=== PATIENT | female | born 1935 | race Caucasian/White ===

== ENCOUNTER → 2023-12-21 10:45 | Outpatient (REF) | payer MEDICARE, OTHER, SELFPAY | LOC: HWWDC 10:45 | PROVIDERS: ATTENDING PHYSICIAN Internal Medicine | DX: Z12.31 Encounter for screening mammogram for malignant neoplasm of breast (principal) | CPT/HCPCS: 77063; 77067 ==

== ENCOUNTER → 2024-03-20 10:51 | Outpatient (REF) | payer MEDICARE, OTHER, SELFPAY | LOC: HWRAD 10:51 | PROVIDERS: ATTENDING PHYSICIAN Internal Medicine Nephrology; FAMILY PHYSICIAN Internal Medicine; REFERRING PHYSICIAN Internal Medicine Cardiovascular Disease | DX: N18.32 Chronic kidney disease, stage 3b (principal) | CPT/HCPCS: 76770 ==

== ENCOUNTER → 2024-05-24 11:27 | Outpatient (REF) | payer MEDICARE, OTHER, SELFPAY ==
[2024-05-24 15:17] LABS: Albumin 4.3 g/dl (3.5-5.0); Blood Urea Nitrogen 32 mg/dl (7-17); Calcium 9.2 mg/dl (8.4-10.2); Carbon Dioxide 26 mmol/L (22-30); Chloride 100 mmol/L (98-107); Glucose 117 mg/dl (70-99); Phosphorus 4.2 mg/dl (2.5-4.5); Potassium 4.7 mmol/L (3.5-5.1); Sodium 134 mmol/L (135-145); eGFR 33.52
[2024-05-24 15:40] LABS: Protein/creatinine Ratio 0.1; Urine Protein 7 mg/dl
== END ==
LOC: HWLAB 11:27
PROVIDERS: ATTENDING PHYSICIAN Internal Medicine Nephrology; FAMILY PHYSICIAN Internal Medicine
DX: N18.32 Chronic kidney disease, stage 3b (principal); N32.81 Overactive bladder
CPT/HCPCS: 36415; 80069; 82570; 84156

== ENCOUNTER → 2024-09-30 09:40 | Outpatient (REF) | payer MEDICARE, OTHER, SELFPAY | LOC: HWLAB 09:40 | PROVIDERS: ATTENDING PHYSICIAN Radiology Radiation Oncology; FAMILY PHYSICIAN Internal Medicine | DX: C44.320 Squamous cell carcinoma of skin of unspecified parts of face (principal) | CPT/HCPCS: 36415; 82565 ==

== ENCOUNTER → 2024-10-02 09:00 | Outpatient (REF) | payer MEDICARE, OTHER, SELFPAY | LOC: RAD 09:00 | PROVIDERS: ATTENDING PHYSICIAN Radiology Radiation Oncology; FAMILY PHYSICIAN Internal Medicine | DX: C44.320 Squamous cell carcinoma of skin of unspecified parts of face (principal) | CPT/HCPCS: 70460; 70491; Q9967 ==

== ENCOUNTER → 2024-11-12 10:03 | Outpatient (REF) | payer MEDICARE, OTHER, SELFPAY | LOC: HWRCS 10:03 | PROVIDERS: ATTENDING PHYSICIAN Internal Medicine Cardiovascular Disease; FAMILY PHYSICIAN Internal Medicine | DX: I10 Essential (primary) hypertension (principal); I25.10 Atherosclerotic heart disease of native coronary artery without angina pectoris | CPT/HCPCS: 93306 ==

== ENCOUNTER → 2024-12-10 11:34 | Outpatient (REF) | payer MEDICARE, OTHER, SELFPAY ==
[2024-12-10 16:12] LABS: Albumin 4.3 g/dl (3.5-5.0); Blood Urea Nitrogen 23 mg/dl (7-17); Calcium 9.3 mg/dl (8.4-10.2); Carbon Dioxide 29 mmol/L (22-30); Chloride 102 mmol/L (98-107); Glucose 117 mg/dl (70-99); Potassium 4.5 mmol/L (3.5-5.1); Sodium 139 mmol/L (135-145); eGFR 33.31
[2024-12-10 16:22] LABS: Urine Character Slightly Cloudy (Clear)
[2024-12-10 16:33] LABS: Urine Red Blood Cell 0-2 /HPF (0-2); Urine Squamous Cell >30 /LPF (Few); Urine White Cell 50-60 /HPF (0-5)
== END ==
LOC: HWLAB 11:34
PROVIDERS: ATTENDING PHYSICIAN Internal Medicine Nephrology; FAMILY PHYSICIAN Internal Medicine
DX: N18.32 Chronic kidney disease, stage 3b (principal)
CPT/HCPCS: 36415; 80069; 81003; 81015; 82570; 84156

== ENCOUNTER 2024-12-28 12:45 | Inpatient (IN) | payer MEDICARE, OTHER, SELFPAY ==
[2024-12-28] VITALS (10 sets, daily range): BP systolic 111–178; BP diastolic 54–76; BMI 20.4; BMI 18.9
--- NOTE | 2024-12-28 10:29 | ED.CVA ---
History of Present Illness
General
Chief Complaint: CVA/TIA Symptoms
Source: patient and family
Exam Limitations: none
Time Seen by Provider: 12/28/24 10:08
Nursing documentation reviewed up to this point in time: agreed with
Onset of Stroke Symptoms
Onset of symptoms known: Yes
Date of onset of symptoms: 12/27/24
History of Present Illness
History of Present Illness:
89-year-old female with a past medical history of hypertension, hyperlipidemia, CAD, GERD who presents to the emergency department for evaluation of facial droop. Patient reports onset of symptoms after she was finished shopping yesterday evening
and they have been constant since that time. She reports that she has had drooping of the left side of her face. She says she had some associated numbness in the face. She has not noticed any change in her vision. She has some dysphonia that is
anxiety related and this is a chronic issue but no acute change in her speech. She denies any numbness or weakness in her extremities. She denies any dizziness. She denies significant headache or neck pain. She said she has never had similar
symptoms in the past. She says that she waited to come in hoping that symptoms would improve this morning but when they had not improved she discussed with her daughter who urged her to come to the ER.
Past History
Past History
ED Past Medical History: CAD, GERD, HTN, Hypercholesterolemia and SC
ED Past Surgical History: Cardiac (Catheterization/RCA stent) and Gynecological
Social History
Tobacco: Former smoker
Alcohol: None
Living: with family
Employment: Retired
Family History
Family History: Negative Diabetes, Hypertension or CAD
Review of Systems
Review of Systems
All Other Systems: ROS reviewed and negative except as documented in HPI and ROS
Constitutional: Denies fever
Respiratory: Denies trouble breathing
Cardiac: Denies chest pain or palpitations
ABD/GI: Denies abdominal pain, vomiting or diarrhea
: Denies flank pain
Musculoskeletal: Denies neck pain or back pain
Neurological: Denies dizzy, headache, weakness or numbness
Phy Exam
Physical Exam
Physical Exam:
General: Awake, alert, oriented x3; somewhat anxious but in no acute distress
Head: Normocephalic, atraumatic
Eyes: Conjunctiva normal, EOMI, pupils equal round and reactive to light bilaterally
Throat: Airway intact, handling secretions
Neck: Trachea midline, supple without meningismus
Lungs: Clear to auscultation bilaterally, no wheezing, rales, rhonchi
Heart: Regular rate and rhythm, faint systolic murmur
Abd: Soft, non distended, nontender
Neuro: Patient has a slight downturn of the left side of her mouth but facial droop on the left seems to spare the forehead; cranial nerves are otherwise intact; motor and sensory intact in all extremities; no limb ataxia; speech is fluent with no
dysarthria or aphasia
Skin: Warm and dry
Extremities: No edema in extremities, equal pulses in all extremities
Scores
NIH Stroke Score
Level of Consciousness: 0 - Alert
LOC Questions: 0-Answers both correctly
LOC Commands: 0-Performs both correctly
Best Horizontal Gaze: 0-Normal
Visual [place]: 0=Normal, no visual loss
Facial Palsy: 1=Minor paralysis
Motor - Right Arm: 0=No drift 10 seconds
Motor - Left Arm: 0=No drift 10 seconds
Motor - Right Le-No drift 5 seconds
Motor - Left Le-No drift 5 seconds
Limb Ataxia: 0-Absent
Sensation: 0-Normal
Best Language: 0-No aphasia
Dysarthria: 0-Normal
Extinction and Inattention: 0-No abnormality
NIH Total Score:: 1
Thrombolytic Contraindication
Inclusion and Exclusion criteria reviewed: Yes
Reasons for NON-Tx with Thrombolytics ABSOLUTE Exclusions: Greater than 4.5 hrs from onset of sxs
Course
Orders/Labs/Results
Orders:
Orders
12/28/24 10:28
Electrocardiogram (*1) Urgent
Reason for Study: TIA/Stroke
CT Head W/o Iv Contrast Urgent
Comment:
Reason For Exam: facial droop/numbness
NEUROLOGY CONSULT Urgent
Consulting Provider: Glendy Roger
Was physician already notified: Yes
EKG- Treatment ONCE
12/28/24 10:31
Complete Blood Count/With Diff Urgent
Lyme Progressive Urgent
12/28/24 11:11
Aspirin Chewable [Low Strength Aspirin] 81 mg PO NOW STA
12/28/24 11:14
Comprehensive Metabolic Panel Urgent
Abnormal Lab Results
12/28/24
10:31
RBC 3.76 L 10^6/uL
(4.20-5.40)
Hgb 11.3 L g/dL
(12.0-16.0)
Hct 35.2 L %
(37.0-47.0)
MCHC 32.1 L g/dL
(33.0-37.0)
Absolute Lymphs (auto) 0.8 L 10^3/uL
(1.2-3.4)
Neutrophils % 75.6 H %
(42.2-75.2)
Lymphocytes % 15.0 L %
(20.5-51.1)
12/28/24 10:31
Vital Signs
Initial and Last Documented VS:
Initial Vital Signs
Temp Pulse Resp BP Pulse Ox
36.6 C 71 20 178/76 95
12/28/24 09:44 12/28/24 09:44 12/28/24 09:44 12/28/24 09:44 12/28/24 09:44
Last Documented Vital Signs
Temp Pulse Resp BP Pulse Ox
36.6 C 71 17 157/76 99
12/28/24 09:44 12/28/24 10:15 12/28/24 10:15 12/28/24 10:00 12/28/24 10:34
MDM/Problems Addressed
Differential Diagnosis Includes:
Cooney's palsy, stroke, brain mass/bleed, complex migraine
MDM/Problems Addressed:
89-year-old female presents to the ER for evaluation of facial droop as described above�onset of symptoms yesterday evening. She is hypertensive but otherwise normal vitals. Physical exam is as above�only neurologic abnormality noted is a lower
facial droop on the left that seems to spare the forehead. No stroke alert called given onset of symptoms yesterday evening�she is outside the window for tenecteplase. Overall I suspect this may be Cooney's palsy given that facial droop is isolated
with otherwise normal neurologic exam but given that it spares the forehead must at least consider CVA especially at age 89 with vascular risk factors. Will check labs, Lyme's test, CT head. Discussed with neurology to consult.
Initial labs reviewed: CBC shows marginal anemia essentially stable. CT head reviewed by me no acute abnormalities�final report pending. Patient seen by neurology recommending admission for continued workup to completely rule out stroke.
Recommended baby aspirin for now. Discussed with hospitalist for admission.
Chronic conditions affecting care:
Hypertension, hyperlipidemia
Acute Exacerbation and/or Progression of Chronic Illness:
Acutely hypertensive improvement without intervention continue to monitor but no emergent antihypertensives indicated at this point
Acute Exacerbation and/or Progression of Chronic Illness: HTN
*Pulse Oximetry
SaO2: 99
Oxygen Mode of Delivery: Room air
Patient hypoxic: no (99%)
*EKG
Interpreted by ED Provider?: Yes
Heart Rate: 67
Rate: normal
Rhythm: sinus
[place]: normal axis
Interval: first degree heart block
QRS Pattern: normal QRS
Ischemia: no ischemia
*Critical Care Note
Total Time (30-74mins, 75-104mins- exclusive of procedures): Not Applicable
Data Reviewed
Source: patient, records and family
Patient Management
Discussion with other providers: Hospitalist (Discussed with hospitalist) and Gifted Program Teacher (Discussed with neurology)
Escalation/DeEscalation of care consider admission/obs:
Admission indicated
ED Attending Note
-
Portions of this chart may have been created with voice recognition software.� Occasional wrong word or��sound alike� substitutions may have occurred due to the inherent limitations of voice recognition software.
Discharge Plan
Departure
Patient Disposition: Admit
Date of Disposition: 12/28/24
Time of Disposition: 11:40
Admit to doctor: Bolanos
Presentation/result/management discussed w/ accepting MD/DO: Hospitalist
Discharge Problem:
Facial droop
Prescriptions:
No Action
atorvastatin [Lipitor] 20 MG tablet
20 mg PO HS
aspirin [Baby Aspirin] 81 MG tablet,chewable
81 mg PO DAILY
sertraline 25 MG tablet
50 mg PO DAILY
diltiazem HCl 120 MG capsule,extended release 24hr
120 mg PO BID
acetaminophen [Tylenol] 325 MG capsule
650 mg PO PRN PRN (Reason: pain)
clopidogrel 75 MG tablet
75 mg PO DAILY Qty: 90 10RF
pantoprazole 40 MG tablet,delayed release (DR/EC)
40 mg PO DAILY Qty: 90 10RF
nitroglycerin 0.4 MG tablet, sublingual
0.4 mg sublingual PRN PRN (Reason: chest pain) Qty: 25 10RF
lisinopril 20 MG tablet
20 mg PO DAILY Qty: 90 10RF
Referrals:
Marco Martinez MD [Family Provider, Internal Medicine]
Interventions
Interventions:
*Risk Screen - Suicide Last Done: 12/28/24 09:44
*General Assessment Last Done: 12/28/24 09:44
*Neglect/Abuse Screening Last Done: 12/28/24 09:44
*ED- Fall Risk Assessment Last Done: 12/28/24 10:22
*ED COVID-19 Vaccine History Last Done: 12/28/24 10:21
*ED Influenza Vaccine History Last Done: 12/28/24 10:21
ED- Pulmonary Assessment Last Done: 12/28/24 09:57
ED- Neurological Assessment Last Done: 12/28/24 09:57
ED- Cardiac Assessment Last Done: 12/28/24 09:57
ED Swallowing Screen Last Done: 12/28/24 09:57
Discharge Date and Time
Print Language: ROMANIAN
[2024-12-28 10:50] LABS: Hematocrit 35.2 % (37.0-47.0); Hemoglobin 11.3 g/dL (12.0-16.0); Mean Corp Hgb Conc. 32.1 g/dL (33.0-37.0); Mean Corpuscular Volume 93.6 fL (81.0-99.0); Nucleated Red Blood Cells % 0 %; Platelet Count 273 10^3/uL (130-400); Red Cell Dist. Width 12.6 % (11.5-14.5)
--- NOTE | 2024-12-28 11:22 | CON.NEURO ---
Consultation
Order
Date of Consultation: 12/28/24
Requesting Provider: Calvin Hilario MD
Reason for Consult: Facial weakness
Neurology Consultation Note.
HPI: This is an 89-year-old RH woman who presented to [facility] on 12/23/2024 with facial weakness that began yesterday while shopping. Ms. Matias noticed something felt different on her left cheek while in the store, and when she
went to her car and smiled in the mirror, she observed left facial weakness.
The patient denies any changes in vision,left ear pain, hyperacusis, dysphagia, headache or sensory deficit. 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 The patient has had dysgeusia after completing 20 rounds of RT
for the right scalp SCC but she is starting to get some taste back.
ER VS: 178/76, 71, afebrile
EKG: Normal sinus rhythm with first AV block.
Labs: Normal WBCs
CT head wo contrast-report is pending
PMH:spasmodic dysphonia, scalp SCC, CAD, HTN, DLP, CKD, RENÉE, GERD, ORB,
PSH:PTCI, bilateral cataract surgery
SH: Lives alone, independent in ADLs; Previously worked at [employer], former smoker
FH: Father at 92, mother - CAD
All:NKDA
ROS: HEENT: Negative for vision changes, double vision, left ear pain, or tinnitus. Positive for taste changes.
Gastrointestinal: Negative for dysphagia.
Neurological: Positive for left-sided weakness, negative for numbness or balance problems.
General: Well developed. In no acute distress.
Cardio: Regular rate and rhythm without murmur. Extremities are without cyanosis or edema.
Neuro:
Mental Status: Alert, oriented to person, place, and date. Normal attention and recall. Good fund of knowledge. Follows complex requests across the midline. Comprehension, naming, and repetition intact.
Cranial Nerves: Pupils are surgical. EOMs full. Visual burgess full to confrontation. No ptosis. No nystagmus. V1-V3 intact to light touch and pinprick bilaterally, symmetric. Left lower face weakness. Eye strength is preserved. Mildly
impaired hearing AU. The palate elevated well. SCMs and traps 5/5. Tongue midline. No dysarthria. Spasmodic dysphonia
Motor: Normal bulk and tone. No pronator or arm drift. Strength 5/5 throughout. No clonus.
Reflexes: 1+ throughout, negative grasp and Edy's bilaterally.
Sensory: Preserved vibration at the ankles
Coordination: No dysmetria or tremor.
Gait: deferred
Assessment and Plan:
I. Acute left facial weakness. Differential diagnosis includes vascular vs neoplastic.
II. SCC, s/p RT
III. Spasmodic dysphonia
-Continue Telemetry monitoring
-Aspiration precautions
-Cautious lowering of BP by approximately 15 % during the first 24 hours is SBP >220 mmHg or diastolic blood pressure >120 mmHg
-Restart antihypertensive medications if BP>140/90 mmHg and neurologically stable in 24 to 48 hours after stroke onset
-Brain MRI w/wo renée
-Continue ASA 81 mg QD
-Lipitor 40 mg QHS.
-Dysphagia evaluation
-OP voice therapy, botulinum toxin injections
-PT.
-DVT prophylaxis.
I personally reviewed all radiology and labs along with past medical records pertinent to current medical problems. Total time spent in patient care is 60 minutes.
Thank you for allowing us to participate in the care of this patient. We will continue to follow. Please do not hesitate to contact us with any questions or concerns.
Subjective/Objective
Subjective Data
Date of Service: December 28, 2024
Objective Data
Vital Signs
Temp Pulse Resp BP Pulse Ox
36.6 C 71 17 157/76 99
12/28/24 09:44 12/28/24 10:15 12/28/24 10:15 12/28/24 10:00 12/28/24 10:34
Lab Results
12/28/24 10:31
Patient Allergies
SEASONAL ALLERGIES Allergy (Mild, Uncoded 12/28/24 09:47)
SINUS HEADACHES, SNEEZING, CONGESTION
Medications
-
Home Medications
�Medication �Instructions �Recorded
atorvastatin 20 mg tablet (Lipitor) 20 mg PO HS 09/04/08
aspirin 81 mg chewable tablet 81 mg PO DAILY 09/23/08
(Baby Aspirin)
sertraline 25 mg tablet 50 mg PO DAILY 10/10/08
acetaminophen 325 mg capsule 650 mg PO PRN PRN pain 10/03/18
(Tylenol)
clopidogrel 75 mg tablet 75 mg PO DAILY #90 tabs 10/03/18
diltiazem HCl 120 mg 120 mg PO BID 10/03/18
capsule,extended release 24 hr
nitroglycerin 0.4 mg sublingual 0.4 mg sublingual PRN PRN chest 10/03/18
tablet pain #25 tabs
pantoprazole 40 mg tablet,delayed 40 mg PO DAILY #90 tabs 10/03/18
release
lisinopril 20 mg tablet 20 mg PO DAILY ##90 10/09/18
Vital Signs and Labs
-
Vital Signs and Labs:
Vital Signs
Temp Pulse Resp BP Pulse Ox
36.6 C 71 17 157/76 99
12/28/24 09:44 12/28/24 10:15 12/28/24 10:15 12/28/24 10:00 12/28/24 10:34
Lab Results
12/28/24 10:31
Home Medications
-
Home Medications
atorvastatin 20 mg tablet (Lipitor) 20 mg PO HS 09/04/08
aspirin 81 mg chewable tablet (Baby Aspirin) 81 mg PO DAILY 09/23/08
sertraline 25 mg tablet 50 mg PO DAILY 10/10/08
acetaminophen 325 mg capsule (Tylenol) 650 mg PO PRN PRN pain 10/03/18
clopidogrel 75 mg tablet 75 mg PO DAILY #90 tabs 10/03/18
diltiazem HCl 120 mg capsule,extended release 24 hr 120 mg PO BID 10/03/18
nitroglycerin 0.4 mg sublingual tablet 0.4 mg sublingual PRN PRN chest pain #25 tabs 10/03/18
pantoprazole 40 mg tablet,delayed release 40 mg PO DAILY #90 tabs 10/03/18
lisinopril 20 mg tablet 20 mg PO DAILY ##90 10/09/18
[2024-12-28] MEDS: LOW STRENGTH ASPIRIN 81 MG PO (11:39)
[2024-12-28 11:42] LABS: ALT (SGPT) 11 U/L (0-35); AST (SGOT) 27 U/L (14-36); Albumin 4.3 g/dl (3.5-5.0); Alkaline Phosphatase 86 U/L (38-126); Blood Urea Nitrogen 21 mg/dl (7-17); Calcium 9.2 mg/dl (8.4-10.2); Carbon Dioxide 27 mmol/L (22-30); Chloride 104 mmol/L (98-107); Estimated Creatinine Clearance 24 ml/min; Glucose 99 mg/dl (70-99); Potassium 5.2 mmol/L (3.5-5.1); Sodium 138 mmol/L (135-145); Total Protein 7.2 g/dl (6.3-8.2); eGFR 39.55
--- NOTE | 2024-12-28 12:04 | HPS.HSE ---
Family Physician
-
Family Physician: Marco Martinez
Chief Complaint
-
Lt facial droop
History of Present Illness
89F Former smoker HX HTN, HLD, CAD, GERD seen at ER :
- for evaluation of facial droop
- onset of symptoms after shopping yesterday evening and they have been constant since that time.
- has had drooping of the left side of her face.
- associated numbness in the face.
- not noticed any change in her vision.
- some dysphonia that is anxiety related and this is a chronic issue but no acute change in her speech.
- denies any numbness or weakness in her extremities.
- denies any dizziness.
- denies significant headache or neck pain.
- Never had similar symptoms in the past.
Medical History
Past Medical History
Past Medical History: Reports CAD (with RCA stent ), GERD, HTN and Hypercholesterolemia
Past Surgical History: Reports Cardiac (Catheterization/RCA stent) and Gynocological
Social History
Tobacco: Former Smoker
Alcohol: None
Family History
Family History: Not pertinent
Allergies / Home Medications
Allergies reflects when Allergies were last updated in [facility].
Home Medications with original date entered in [facility]
Allergy/Medication List:
Allergies
Allergy/AdvReac Type Severity Reaction Status Date / Time
SEASONAL ALLERGIES Allergy Mild SINUS Uncoded 12/28/24 09:47
HEADACHES,
SNEEZING,
CONGESTION
Home Medications
aspirin 81 mg tablet,delayed release 81 mg PO DAILY 12/28/24
atorvastatin 40 mg tablet (Lipitor) 40 mg PO HS 12/28/24
diltiazem HCl 120 mg tablet,extended release 24 hr 120 mg PO BID 12/28/24
diphenhydramine 25 mg-acetaminophen 500 mg tablet (Acetaminophen PM) 1 tab PO HS 12/28/24
lisinopril 20 mg-hydrochlorothiazide 12.5 mg tablet 1 tab PO DAILY 12/28/24
sertraline 50 mg tablet 50 mg PO DAILY 12/28/24
Review of Systems
-
Constitutional: Reports No Symptoms
EENT: Reports See HPI
Respiratory: Reports No Symptoms
Cardiac: Reports No Symptoms
Abdomen/GI: Reports No Symptoms
: Reports No Symptoms
Musculoskeletal: Reports No Symptoms
Skin: Reports No Symptoms
Neurological: Reports See HPI
Endocrine: Reports No Symptoms
Hematologic/Lymphatic: Reports No Symptoms
Psych: Reports No Symptoms
Physical Exam
Vital Signs
Vital Signs
Temp Pulse Resp BP Pulse Ox
97.9 F 71 17 141/63 94
12/28/24 09:44 12/28/24 11:46 12/28/24 11:45 12/28/24 11:00 12/28/24 11:45
Physical Exam
General: Well Developed, Well Nourished and No Apparent Distress
HEENT: NormoCephalic, Moist mucous membranes and Atraumatic
Respiratory: Clear
Cardiac: S1/S2 and Regular Rhythm; No Murmur or Rub
GI: Soft, Non Tender, Non Distended and Normal Bowel Sounds; No Organomegaly
Rectal: Deferred by Provider
Musculoskeletal: No Clubbing, No Cyanosis and No Edema
Skin: No Rash
Neuro: Nonfocal/grossly intact and Facial Droop (Lt sided )
Laboratory Results
-
12/28/24 10:31
12/28/24 11:14
Laboratory Results
Total Bilirubin 0.5 mg/dl (0.2-1.3) 12/28/24 11:14
AST 27 U/L (14-36) 12/28/24 11:14
ALT 11 U/L (0-35) 12/28/24 11:14
Alkaline Phosphatase 86 U/L (38-126) 12/28/24 11:14
Data Reviewed
-
CT Scan: Report Reviewed by me
Medical Tests (Nuc Med, Echo, EKG etc): Report Reviewed by me
Lab Data: Labs Reviewed by me
Impression/Plan
-
Relevant Data
12/11/23 12/10/24 12/28/24
10:07 11:45 10:31 and 11:14
Hgb 12.0 11.3 L
MCV 93.6
Potassium 4.5 5.2
BUN 23 H 21
Creatinine 1.5 H 1.3
eGFR 33.31 39.55
EKG
SINUS RHYTHM WITH 1ST DEGREE A-V BLOCK
OTHERWISE NORMAL ECG
WHEN COMPARED WITH ECG OF 09-Oct-2018 04:45,
NO SIGNIFICANT CHANGE WAS FOUND
CT Head W/o Iv Contrast -No acute intracranial abnormality noted.
No prior hospitalist admission:
ASSESSMENT & PLAN
Acute left facial weakness. DDX: CVA vs neoplastic.
HX Spasmodic dysphonia
- denies any changes in vision,left ear pain, dysphagia, headache or sensory deficit.
- Neuro consult appreciated : noted following suggestion
- Permissive HTN : SBP less than 220 mmHg or DBP less than 120 120 mmHg
- To resume BP meds BP>140/90 mmHg and neurologically stable in 24 to 48 hours after stroke onset
- Brain MRI w/wo snow
- c/w ASA 81 mg QD
- Lipitor 40 mg QHS.
- Dysphagia evaluation
- OP voice therapy, botulinum toxin injections
HX chronic spasmodic dysphonia
Associated dwith anxiety
Benign HTN
- Permissive HTN : SBP less than 220 mmHg or DBP less than 120 120 mmHg for lesstahn 48hrs after onset of stroke
- Hold DOOR SERVICEMAN Diltiazem 120 BID
- Hold Lisinopril/HCTZ daily
- To resume BP Meds BP>140/90 mmHg and neurologically stable in 24 to 48 hours after stroke onset
DLP
- DO[employer]ICEM[employer] Lipitor 40 HS
HX R scalp SCC : starting to get some taste back.
S/P 20 rounds XRT f
CKD 3b
- stable
- baseline Cr is mid to hi 1s. eGFR 30s
DVT Px: SCD
Full code
IP TLM
[2024-12-28 14:56] LABS: Glycohemoglobin (HgbA1c) 6.1 % (4.0-5.9)
--- NOTE | 2024-12-28 17:03 | PTCARENOTE ---
admitted to room 436-2 from ED. VSS. NSR on telemetry, HR 60s. NIHSS 1 for left facial droop, see flowsheet. Discussed plan of care w/ patient and daughter, Kiley.
[2024-12-28] MEDS: TYLENOL 650 MG PO (19:29)
[2024-12-28] MEDS: LIPITOR 40 MG PO (21:25)
[2024-12-29] VITALS (8 sets, daily range): BP systolic 125–154; BP diastolic 61–87; PULSE 75–77; O2SAT 97–98; BMI 18.9
[2024-12-29] MEDS: ZOFRAN 4 MG IV ×3 (05:22→22:23)
--- NOTE | 2024-12-29 05:29 | PTCARENOTE ---
Pt rang because she felt nauseous/ started dry heaving . Pt believes it's from 'not taking her cardizem' EMILIA Gaitan notified and ordered zofran.
[2024-12-29 07:17] LABS: Hematocrit 32.2 % (37.0-47.0); Hemoglobin 10.6 g/dL (12.0-16.0); Mean Corp Hgb Conc. 32.9 g/dL (33.0-37.0); Mean Corpuscular Volume 91.5 fL (81.0-99.0); Platelet Count 248 10^3/uL (130-400); Red Cell Dist. Width 12.6 % (11.5-14.5)
[2024-12-29 07:32] LABS: Blood Urea Nitrogen 19 mg/dl (7-17); Calcium 9.2 mg/dl (8.4-10.2); Carbon Dioxide 27 mmol/L (22-30); Chloride 101 mmol/L (98-107); Estimated Creatinine Clearance 26 ml/min; Glucose 102 mg/dl (70-99); HDL Cholesterol 65 mg/dl; LDL Cholesterol, Calculated 43 mg/dl; Potassium 5.5 mmol/L (3.5-5.1); Sodium 135 mmol/L (135-145); Very Low Density Lipoprotein 19 mg/dl (0-30); eGFR 48.33
[2024-12-29 07:54] LABS: VerifyNow Aspirin 406 ARU
--- NOTE | 2024-12-29 08:15 | W.PN.NEURO.1 ---
Today's Communication / Plan
-
.
Subjective/Objective
Subjective Data
Date of Service: December 29, 2024
Neurology follow-up note.
Ms. Matias reports no complaints. No change in speech, vision or strength since admission.
Brain MRI�no acute infarcts.
PMH:spasmodic dysphonia, scalp SCC, CAD, HTN, DLP, CKD, RENÉE, GERD, ORB,
PSH:PTCI, bilateral cataract surgery
SH: Lives alone, independent in ADLs; Previously worked at [employer], former smoker
FH: Father at 92, mother - CAD
All:NKDA
ROS: HEENT: Negative for vision changes, double vision, left ear pain, or tinnitus. Positive for taste changes.
Gastrointestinal: Negative for dysphagia.
Neurological: Positive for left-sided weakness, negative for numbness or balance problems.
General: Well developed. In no acute distress.
Cardio: Regular rate and rhythm without murmur. Extremities are without cyanosis or edema.
Neuro:
Mental Status: Alert, oriented to person, place, and date. Normal attention and recall. Good fund of knowledge. Follows complex requests across the midline. Comprehension, naming, and repetition intact.
Cranial Nerves: Pupils are surgical. EOMs full. Visual burgess full to confrontation. No ptosis. No nystagmus. V1-V3 intact to light touch and pinprick bilaterally, symmetric. Left lower face weakness. Eye strength is preserved. Mildly
impaired hearing AU. The palate elevated well. SCMs and traps 5/5. Tongue midline. No dysarthria. Spasmodic dysphonia
Motor: Normal bulk and tone. No pronator or arm drift. Strength 5/5 throughout. No clonus.
Reflexes: 1+ throughout, negative grasp and Edy's bilaterally.
Sensory: Preserved vibration at the ankles
Coordination: No dysmetria or tremor.
Gait: deferred
Assessment and Plan:
I. Likely very mild left lower motor CN VII weakness. Clinically improved.
II. SCC, s/p RT
III. Spasmodic dysphonia
- Continue Telemetry monitoring
- Lipitor 40 mg QHS.
- OP voice therapy, botulinum toxin injections
- Case was discussed with patient's son
- Please call neurology service with any questions or concerns
I personally reviewed all radiology and labs along with past medical records pertinent to current medical problems. Total time spent in patient care is 36 minutes.
Thank you for allowing us to participate in the care of this patient. Please do not hesitate to contact us with any questions or concern
Objective Data
Vital Signs
Temp Pulse Resp BP Pulse Ox
36.6 C 68 16 143/68 96
12/29/24 07:08 12/29/24 07:08 12/29/24 07:08 12/29/24 07:08 12/29/24 07:08
Lab Results
12/29/24 06:37
12/29/24 06:37
Sodium 135 mmol/L (135-145) 12/29/24 06:37
Potassium 5.5 mmol/L (3.5-5.1) H 12/29/24 06:37
BUN 19 mg/dl (7-17) H 12/29/24 06:37
Glucose 102 mg/dl (70-99) H 12/29/24 06:37
Calcium 9.2 mg/dl (8.4-10.2) 12/29/24 06:37
LDL Cholesterol, Calc 43 mg/dl 12/29/24 06:37
Patient Allergies
SEASONAL ALLERGIES Allergy (Mild, Uncoded 12/28/24 09:47)
SINUS HEADACHES, SNEEZING, CONGESTION
Vital Signs and Labs
-
Vital Signs and Labs:
Vital Signs
Temp Pulse Resp BP Pulse Ox
36.6 C 78 18 133/78 94
12/29/24 11:43 12/29/24 11:43 12/29/24 11:43 12/29/24 11:43 12/29/24 11:43
Lab Results
12/29/24 06:37
12/29/24 06:37
Sodium 135 mmol/L (135-145) 12/29/24 06:37
Potassium 5.5 mmol/L (3.5-5.1) H 12/29/24 06:37
BUN 19 mg/dl (7-17) H 12/29/24 06:37
Glucose 102 mg/dl (70-99) H 12/29/24 06:37
Calcium 9.2 mg/dl (8.4-10.2) 12/29/24 06:37
LDL Cholesterol, Calc 43 mg/dl 12/29/24 06:37
Medications
-
Medications:
Generic Name Dose Route Start Last Admin
Trade Name Freq PRN Reason Stop Dose Admin
Acetaminophen 650 mg 12/28/24 18:34 12/28/24 19:29
Acetaminophen 325 Mg Tablet PO 01/25/25 18:33 650 mg
Q6HPRN PRN Administration
mild pain/ fever>100.5F
Aspirin 81 mg 12/29/24 08:00 12/29/24 09:37
Aspirin 81 Mg (Enteric Coated) Tablet PO 01/26/25 07:59 81 mg
DAILY SUZANNE Administration
Atorvastatin Calcium 40 mg 12/28/24 22:00 12/28/24 21:25
Atorvastatin (Lipitor) 40 Mg Tablet PO 01/25/25 21:59 40 mg
HS SUZANNE Administration
Diltiazem HCl 120 mg 12/29/24 20:00
Diltiazem 120 Mg Extended Release (24 H) Capsule PO 01/26/25 19:59
BID SUZANNE
Hydralazine HCl 5 mg 12/28/24 13:39
Hydralazine 20 Mg/Ml Vial IV 01/25/25 13:38
Q6HPRN PRN
if SBP > 220 or DBP > 120
Ondansetron HCl 4 mg 12/29/24 05:15 12/29/24 11:15
Ondansetron 4 Mg/2 Ml Vial IV 01/26/25 05:14 4 mg
Q6HPRN PRN Administration
NAUSEA/VOMITING
Sertraline HCl 50 mg 12/29/24 08:00 12/29/24 09:37
Sertraline 50 Mg Tablet PO 01/26/25 07:59 50 mg
DAILY SUZANNE Administration
Sodium Chloride 0 flush 12/28/24 14:00
Sodium Chloride 0.9% (Flush) Syringe IV 01/25/25 13:59
PER PROTOCOL SUZANNE
Home Medications
-
Home Medications
aspirin 81 mg tablet,delayed release 81 mg PO DAILY 12/28/24
atorvastatin 40 mg tablet (Lipitor) 40 mg PO HS 12/28/24
diltiazem HCl 120 mg tablet,extended release 24 hr 120 mg PO BID 12/28/24
diphenhydramine 25 mg-acetaminophen 500 mg tablet (Acetaminophen PM) 1 tab PO HS 12/28/24
lisinopril 20 mg-hydrochlorothiazide 12.5 mg tablet 1 tab PO DAILY 12/28/24
sertraline 50 mg tablet 50 mg PO DAILY 12/28/24
[2024-12-29] MEDS: ASPIR LOW (ENTERIC COATED) 81 MG PO (09:37)
[2024-12-29] MEDS: ZOLOFT 50 MG PO (09:37)
--- NOTE | 2024-12-29 10:35 | PTCARENOTE ---
patient currently off unit for MRI
--- NOTE | 2024-12-29 10:55 | PTOTSP ---
Speech Therapy Evaluation:
Pt with acute risk factor of dysphagia including concern for CVA. MRI currently pending. At bedside, pt with L facial droop (improving), however this did not appear to impact overall swallow function. Oral phase grossly functional. No overt s/sx of
aspiration across trials. No chest imaging completed thus far. Pt passed 3oz swallow screen.
Recommend:
1. Regular solids and thin liquids
2. Medications as tolerated
3. General aspiration precautions
4. MOBILE MECHANIC to follow to monitor tolerance of diet and determine if pt would benefit from further testing pending MRI.
[2024-12-29] MEDS: LOKELMA 10 GRAM PO (11:12)
--- NOTE | 2024-12-29 12:05 | W.PN.HOSP.TC ---
Today's Communication/Plan
-
Monitor vital signs and see plan
MRI pending
Check obstruction series
Lokelma
Repeat BMP later today
Monitor renal function
Discussed with neurology, restart Cardizem
Assessment / Plan
Assessment / Plan
General: Well Developed, Well Nourished and No Apparent Distress
HEENT: Normocephalic, Moist mucous membranes and Atraumatic
Respiratory: Clear
Cardiac: S1/S2 and Regular Rhythm; No Murmur or Rub
GI: Soft, Non Tender, Non Distended and Normal Bowel Sounds
Musculoskeletal: No Edema
Neuro: Nonfocal/grossly intact and Facial Droop (Lt sided )
Acute left facial weakness along with facial droop
HX Spasmodic dysphonia
- denies any changes in vision,left ear pain, dysphagia, headache or sensory deficit.
Neurology following
MRI pending
Discussed with neurology, okay to start Cardizem
- c/w ASA 81 mg QD
- Lipitor 40 mg QHS.
- OP voice therapy, botulinum toxin injections
Nausea/vomiting
Denies abdominal pain
Check abdomen x-ray
Hyperkalemia
Lokelma
HX chronic spasmodic dysphonia
Associated with anxiety
Benign HTN
- restart Diltiazem 120 BID
- Hold Lisinopril/HCTZ daily
- To resume BP Meds BP>140/90 mmHg
DLP
- PASTA MAKER Lipitor 40 HS
HX R scalp SCC
S/P 20 rounds XRT
hx of CKD 3b
- stable
- baseline Cr is mid to hi 1s.
DVT Px: SCD, heparin
Full code
Anticipated Discharge: Within 24 hours
Subjective/Interval History
-
Date of Service: December 29, 2024
Denies nausea
Objective Data
-
Labs:
Laboratory Results
12/29/24
06:37
WBC 3.8 L
Hgb 10.6 L
Hct 32.2 L
Plt Count 248
Sodium 135
Potassium 5.5 H
Chloride 101
Carbon Dioxide 27
BUN 19 H
Creatinine 1.1 H
Glucose 102 H
Calcium 9.2
Vital Signs:
Vital Signs
Temp Pulse Resp BP Pulse Ox
97.8 F 78 18 133/78 94
12/29/24 11:43 12/29/24 11:43 12/29/24 11:43 12/29/24 11:43 12/29/24 11:43
I&O
12/28/24 12/29/24 12/30/24
06:59 06:59 06:59
Intake Total 360 / 360
Balance 360 / 360
--- NOTE | 2024-12-29 12:15 | PTCARENOTE ---
Immediately vomitted after drinking Lokelma. Dr. Martinez aware. Order to recheck BMP at 20:00 noted.
--- NOTE | 2024-12-29 12:30 | CM ---
Met with patient and family at bedside
Primary Contact: DaughterKiley
Pharmacy verified: [facility] @ [address] [facility]
Lives alone; split level home; railings on stairs
Independent w/ ambulation, stairs, and ADLs; Drives; No DME
No SNF or Home Health utilization history
DaughterKiley will provide transport home
Plan: Discharge to home when medically stable; no needs
[2024-12-29] MEDS: LIPITOR 40 MG PO (19:55)
[2024-12-29] MEDS: CARDIZEM CD 120 MG PO (19:55)
[2024-12-29] MEDS: HEPARIN 5000 UNITS SC (19:57)
[2024-12-29 22:22] LABS: Blood Urea Nitrogen 21 mg/dl (7-17); Calcium 9.1 mg/dl (8.4-10.2); Carbon Dioxide 26 mmol/L (22-30); Chloride 99 mmol/L (98-107); Estimated Creatinine Clearance 26 ml/min; Glucose 101 mg/dl (70-99); Potassium 4.6 mmol/L (3.5-5.1); Sodium 134 mmol/L (135-145); eGFR 48.33
[2024-12-30 03:24] VITALS: BP 149/76
[2024-12-30 07:00] VITALS: BP 152/74
[2024-12-30 08:02] LABS: Hematocrit 36.6 % (37.0-47.0); Hemoglobin 11.8 g/dL (12.0-16.0); Mean Corp Hgb Conc. 32.2 g/dL (33.0-37.0); Mean Corpuscular Volume 94.8 fL (81.0-99.0); Platelet Count 237 10^3/uL (130-400); Red Cell Dist. Width 12.4 % (11.5-14.5)
[2024-12-30 08:36] LABS: Blood Urea Nitrogen 21 mg/dl (7-17); Calcium 9.4 mg/dl (8.4-10.2); Carbon Dioxide 29 mmol/L (22-30); Chloride 100 mmol/L (98-107); Estimated Creatinine Clearance 24 ml/min; Glucose 94 mg/dl (70-99); Potassium 4.8 mmol/L (3.5-5.1); Sodium 134 mmol/L (135-145); eGFR 43.54
[2024-12-30] MEDS: CARDIZEM CD 120 MG PO ×2 (09:41→20:41)
[2024-12-30] MEDS: ASPIR LOW (ENTERIC COATED) 81 MG PO (09:41)
[2024-12-30] MEDS: HEPARIN 5000 UNITS SC ×2 (09:41→20:42)
[2024-12-30] MEDS: ZOLOFT 50 MG PO (09:41)
[2024-12-30 11:01] VITALS: BP 133/72
[2024-12-30 11:36] LABS: Lyme Antibody Screen, EIA Negative (Negative)
--- NOTE | 2024-12-30 12:30 | W.PN.HOSP.TC ---
Today's Communication/Plan
-
DC
Assessment / Plan
Assessment / Plan
Acute left facial weakness along with facial droop and also left cheek numbness
HX Spasmodic dysphonia
But symptoms have resolved. No further facial droop.
MRI with stroke.
Unclear if this is a TIA.
- c/w ASA 81 mg QD
- Lipitor 40 mg QHS.
-In sinus rhythm. LDL 43. Blood pressure under goal.HbA1c 6.1
-Neurology input noted. They recommend outpatient OP voice therapy, botulinum toxin injections for dysphonia.
- Will check an ultrasound of the carotids prior to discharge to make sure there is no significant stenosis.
Nausea/vomiting
Denies abdominal pain
X-ray of the abdomen no intestinal obstruction or free air. Self-limiting symptom. Currently asymptomatic. Abdomen benign.
Hyperkalemia
Lokelma
With chronic kidney disease will discontinue the lisinopril and continue with hydrochlorothiazide along with Cardizem but hypertension
HX chronic spasmodic dysphonia
Associated with anxiety
Benign HTN
- BP under goal.
DLP
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
HX R scalp SCC
S/P 20 rounds XRT
hx of CKD 3b
- stable
- baseline Cr is mid to hi 1s.
DVT Px: SCD, heparin
Full code
DW Daughter
DC home after US carotids
Anticipated Discharge: Today
Subjective/Interval History
-
Date of Service: December 30, 2024
All her symptoms have resolved.
Denies any tingling numbness in the left cheek like she had before coming in. Also states the left facial droop has resolved. No headache. No limb weakness.
Denies any nausea vomiting or abdominal pain. No loss of breath or chest pain.
Objective Data
-
Labs:
Laboratory Results
12/30/24
07:49
WBC 4.2 L
Hgb 11.8 L
Hct 36.6 L
Plt Count 237
Sodium 134 L
Potassium 4.8
Chloride 100
Carbon Dioxide 29
BUN 21 H
Creatinine 1.2 H
Glucose 94
Calcium 9.4
Vital Signs:
Vital Signs
Temp Pulse Resp BP Pulse Ox
98.2 F 82 16 133/72 96
12/30/24 11:01 12/30/24 11:01 12/30/24 11:01 12/30/24 11:01 12/30/24 11:01
I&O
12/29/24 12/30/24 12/31/24
06:59 06:59 06:59
Intake Total 360 / 360
Balance 360 / 360
Physical Exam
-
General: Comfortable
Respiratory: Clear to Auscultation and Non Labored Respirations; Negative Accessory Resp Muscle Use
Cardiac: Regular Rhythm and S1/S2; Negative Tachycardic
GI: Nontender
Neuro: AO x 3 and No Motor Deficits; Negative Tremors, Slurred Speech (dysphonia noted) or Facial Droop
Psych: Calm; Negative Confused or Agitated
Data Reviewed
-
MRI: Report Reviewed by me (MRI of the brain)
Labs: Labs Reviewed by me
[2024-12-30 15:39] VITALS: BP 123/62
--- NOTE | 2024-12-30 16:42 | CM ---
Chart reviewed and patient is currently ambulating 200 feet without assisted device, plan is to home when stable.
Plan; Home alone at discharge.
[2024-12-30] MEDS: PLAVIX 75 MG PO (18:14)
[2024-12-30 19:00] VITALS: BP 118/60
[2024-12-30] MEDS: LIPITOR 40 MG PO (20:41)
[2024-12-30 23:03] VITALS: BP 146/63
[2024-12-31 03:11] VITALS: BP 137/58
[2024-12-31 07:09] VITALS: BP 143/62
[2024-12-31 08:09] VITALS: BP 143/62
--- NOTE | 2024-12-31 08:21 | CON.VAS ---
Consultation
Consultation Request
Date/Time Consultation Performed: 12/23/2024 at 8 AM
Requesting Provider: Hospitalist
Performing Provider: Kimi Gifford, REMBERTO-C for Lee Miller M.D.
Reason for Consultation: Left carotid stenosis
Medical History
-
Chief Complaint: Left facial droop
History of Present Illness:
This is an 89-year-old right handed female with significant past medical history for hypertension, hyperlipidemia, coronary artery disease, chronic kidney disease, GERD, and squamous cell cancer who presented to [facility] ED on 12/28/2024 with
reports of acute onset of painless left-sided facial droop that began on 12/27/2024 while she was shopping. When patient awoke on Monday she noted that facial droop had improved but not completely resolved prompting her to call her daughter who
brought her to ED for urgent evaluation. Upon evaluation in the ED on 12/28/2024 she was noted to have near resolution of left-sided facial droop, and currently for this exam patient indicates that she has had complete resolution and her face
symmetry is at baseline. She denies any accompanying unilateral weakness, vision changes, dysarthria, aphasia, dysphagia, and headache. She indicates that she did also have accompanying paresthesia around her cheek, she described the event as if
she had received Novocain at the dentist. Currently without any complaints. Denies personal or familial history of stroke. Denies prior experience of similar symptomatology. Notes she does have history of squamous cell carcinoma of the right side
of the face with radiation directed to there. No radiation to the neck. No prior surgery in the neck. As part of workup patient had carotid vascular ultrasound which demonstrated left internal carotid artery stenosis of possibly greater than 70%
and right carotid artery stenosis of roughly 50 to 69%, prompting vascular consultation.
Past Medical History
Past Medical History: CAD (With coronary stents to RCA), Cancer (Squamous cell cancer, location right sided scalp status post radiation therapy), GERD, HTN and Other (Hyperlipidemia, chronic kidney disease)
Past Surgical History: Cardiac (Cardiac catheterization with PCI)
Social History
Tobacco: Former Smoker (Pack per day smoker, quit roughly 40 years ago)
Alcohol: None
Allergies / Home Medications
Allergy/AdvReac Type Severity Reaction Status Date / Time
SEASONAL ALLERGIES Allergy Mild SINUS Uncoded 12/28/24 09:47
HEADACHES,
SNEEZING,
CONGESTION
�Medication �Instructions �Recorded �Confirmed �Type
aspirin 81 mg tablet,delayed 81 mg PO DAILY 12/28/24 12/28/24 History
release
atorvastatin 40 mg tablet (Lipitor) 40 mg PO HS 12/28/24 12/28/24 History
diltiazem HCl 120 mg 120 mg PO BID 12/28/24 12/28/24 History
tablet,extended release 24 hr
diphenhydramine 25 1 tab PO HS 12/28/24 12/28/24 History
mg-acetaminophen 500 mg tablet
(Acetaminophen PM)
sertraline 50 mg tablet 50 mg PO DAILY 12/28/24 12/28/24 History
lisinopril 20 1 tab PO DAILY #1 tab 12/30/24 Rx
mg-hydrochlorothiazide 12.5 mg
tablet
Review of Systems
-
History Source: Patient
Constitutional: Reports No Symptoms
EENT: Reports No Symptoms
Respiratory: Reports No Symptoms
Cardiac: Reports No Symptoms
Abdomen/GI: Reports No Symptoms
: Reports No Symptoms
Musculoskeletal: Reports No Symptoms
Skin: Reports No Symptoms
Neurological: Reports Other (Acute onset of left-sided facial weakness with paresthesia of cheek, now resolved)
Physical Exam
Vital Signs
Temp Pulse Resp BP Pulse Ox
98.1 F 68 12 143/62 96
12/31/24 07:09 12/31/24 07:09 12/31/24 07:09 12/31/24 07:09 12/31/24 07:09
Lab Results
12/30/24 07:49
12/30/24 07:49
Physical Exam
General: No Apparent Distress and Comfortable
HEENT: Normocephalic, Anicteric, Atraumatic and Other (On right side of scalp patient is with hair loss and some few areas of small scabbing as she is status post radiation for squamous cell cancer)
Respiratory: Non Labored Respirations
Cardiac: Negative JVD
GI: Non Distended
Musculoskeletal: No Edema and Other
Skin: Warm
Neuro: AO x 3, No Motor Deficits and Nonfocal/Grossly Intact
Psych: Calm
Pulses: Bilateral Dorsalis Pedis: +2 (2+ carotid pulsations bilaterally. 2+ upper extremity radial pulses palpable bilaterally)
Assessment / Plan
-
Assessment: 81-year-old female with left carotid artery stenosis, duplex and CT scan with IV contrast (not formally CTA) from 09/27 reviewed with attending, Dr. Lee Miller M.D., these demonstrate significant left carotid plaque with by carotid duplex
right velocity criteria, greater than 70% left internal carotid artery stenosis.
Plan:
Reviewed neurology notes. Neurology states, that this is a motor nerve weakness, not an upper motor neuron issue. Therefore this would represent an asymptomatic left carotid artery stenosis. Given her age, chronic calcified plaque on imaging,
asymptomatic status, Dr. Miller is recommending continued medical management. Agree with antiplatelet therapy and statin therapy. Our team discussed with them sometimes diagnostic uncertainty in terms of facial droop. However defer to the neurology
assessment. Discussed with them briefly the risks and benefits of carotid revascularization in her age group versus medical management. Patient and daughter who is at bedside agree with continuing medical management. Will will arrange for office
follow-up in the next 2 to 4 weeks. Will continue to survey going forward.
Patient was seen and examined with Dr. Lee Miller who agrees with above plan.
--- NOTE | 2024-12-31 08:25 | W.PN.UPDATE ---
Update Note
Progress Note Update
Seen and examined with REMBERTO Gifford. Full consultation to follow. 89-year-old female with history of hypertension, hyperlipidemia, CAD (stents), history of tobacco use 40 years ago presented with left-sided facial droop. She noticed the day before
admission, relatively sudden onset of sensation like she had just received local anesthetic from her dentist. When she looked in the mirror in her car, she noticed that the left side of her face appeared to be drooping. No associated symptoms. No
unilateral numbness or weakness. No speech dysarthria. No amaurosis. She notes that symptoms resolved within 24 hours.
Notes she does have history of squamous cell carcinoma of the right side of the face with radiation directed to there. No radiation to the neck. No prior surgery in the neck.
Her exam is essentially unremarkable. She is awake and alert. Breathing is unlabored. Neurologically no focal deficits. 2+ carotid pulsations bilaterally. 2+ upper extremity radial pulses palpable bilaterally. Abdomen is soft. 2+ pedal pulses
palpable bilaterally.
Duplex reviewed. I also reviewed a CT scan with IV contrast (not formally CTA) dated 09/27. These demonstrate significant left carotid plaque with by carotid duplex right velocity criteria, greater than 70% left internal carotid artery stenosis.
CAT scan demonstrates heavy bulky calcified plaque. No soft plaque elements from what I can ascertain.
Plan/ Left carotid stenosis. Reviewed neurology notes. They feel that this is a motor nerve weakness, not an upper motor neuron issue. Therefore this would represent an asymptomatic left carotid artery stenosis. Given her age, chronic calcified
plaque on imaging, asymptomatic status, would favor continued medical management. Agree with antiplatelet therapy and statin therapy. I discussed with them sometimes diagnostic uncertainty in terms of facial droop. However defer to the neurology
assessment. Discussed with them briefly the risks and benefits of carotid revascularization in her age group versus medical management. They agree with continuing medical management. Will see her in the office in follow-up in the next 2 to 4
weeks. Will continue to survey going forward.
[2024-12-31] MEDS: HEPARIN 5000 UNITS SC (08:45)
[2024-12-31] MEDS: CARDIZEM CD 120 MG PO (08:45)
[2024-12-31] MEDS: PLAVIX 75 MG PO (08:45)
[2024-12-31] MEDS: ZOLOFT 50 MG PO (08:45)
[2024-12-31] MEDS: ASPIR LOW (ENTERIC COATED) 81 MG PO (08:45)
--- NOTE | 2024-12-31 14:28 | W.DCSUMMARY ---
Discharge Summary
Discharge Data
Date of Admission: 12/28/24
Date of Discharge: 12/31/24
-
Pending Results: No
Hospital Course
Primary diagnosis:
Possible TIA
Carotid artery stenosis
Secondary diagnosis:
Chronic kidney disease stage IIIb
Chronic spasmodic dysphonia
Benign hypertension
Hyperlipidemia
History of right scalp squamous cell carcinoma s/p radiation treatment
Hospital course:
Patient presented with acute onset of left-sided facial droop along with left cheek numbness. Self-limiting. MRI showed no evidence of stroke. Clinical concern for TIA. She was on aspirin. She was already on statins. LDL was 43. Clinically in
sinus rhythm without A-fib on monitor. Blood pressure under goal. Hemoglobin A1c 6.1. A carotid ultrasound was obtained as she has chronic kidney disease and it showed a right sided 50 to 69% ICA stenosis and left-sided more than 70% stenosis in
the ICA. Was seen by both neurology and vascular. The left carotid stenosis was felt asymptomatic. Given her age, chronic calcified plaque on imaging, asymptomatic status stable medical management of carotid stenosis. Neurology recommended dual
antiplatelet agents for now if she can tolerate DAPT. Continue with statins. Advised to follow-up with vascular regarding progression.
On presentation she had mild hyperkalemia with potassium of 5.5 for which she received Lokelma. She has a chronic kidney disease stage IIIb. She is on combination of lisinopril and hydrochlorothiazide. Discussed with the on-call gem expert
recommendation is the continue her antihypertensives and repeat outpatient BMP in a week and if still persistent hyperkalemia then consider substitution to lisinopril.
Today patient asymptomatic without any recurrence of symptoms or any neurological symptom. Nonfocal neurologically. Blood pressure 144/62. Pulse 71. Afebrile. Deemed medically stable for discharge.
Consultants on board:
Vascular-Lee Montes De Oca
Neurology-Koby Schmitz
Portions of this chart may have been created with voice recognition software. Occasional wrong word or 'sound alike' substitutions may have occurred due to the inherent limitations of voice recognition software.
Discharge Plan
-
Patient Disposition: Home (Routine Discharge)
Discharge Diagnosis/Procedures: Transient left facial droop and numbness - possible TIA; Hyperkalemia ;CKD 3 ;HTN
Diet: 2 Gram Sodium
Activity: As tolerated
Driving Restrictions: No driving for 1 week
Bathing Restrictions: None
Blood Work: BMP in one week - arrange through your PCP
Referrals:
Koby Kim MD [Active, Neurology] - in one month
Referral Note: Follow up on TIA
Marco Martinez MD [Family Provider, Internal Medicine] - in less than 1 week
Lee Miller MD [Active, Vascular Surgery] - in two to four weeks
Referral Note: To follow on carotid stenosis
Gaby Brand CRNP [Specified Professional Personl, Vascular Surgery] - 02/03/25 2:30 pm
Referral Note: This is your vascular surgery follow-up
Prescriptions:
New
lisinopril-hydrochlorothiazide 20-12.5 mg tablet
1 tab PO DAILY Qty: 1 0RF
Rx Instructions:
as before
clopidogrel [Plavix] 75 mg tablet
75 mg PO DAILY Qty: 30 0RF
Continued
diltiazem HCl 120 mg Tablet Extended Release 24 Hr
120 mg PO BID
atorvastatin [Lipitor] 40 mg Tablet
40 mg PO HS
aspirin 81 mg Tablet,Delayed Release (Dr/Ec)
81 mg PO DAILY
diphenhydramine-acetaminophen [Acetaminophen PM] 25-500 mg Tablet
1 tab PO HS
sertraline 50 mg Tablet
50 mg PO DAILY
Discontinued
lisinopril-hydrochlorothiazide 20-12.5 mg Tablet
1 tab PO DAILY
Discharge Orders:
Discharge Patient (As Directed); Ordered 12/31/24
Ordered By: Julio C Lam
Discharge Date and Time
Print Language: AMERICAN
--- NOTE | 2024-12-31 14:31 | W.PN.UPDATE ---
Update Note
Progress Note Update
DW Dr Kim
Possible TIA . With Rt ICA stenosis 50-69% feels like likely symptomatic . But with L ICA stenosis and plaque aggressive medical management and follow with Vascular as OP to follow on progression. He is recommending DAPT beyond 21 days with plavix.
Pt on asa at home.
Ok for dc from their standpoint.
[2024-12-31 15:00] VITALS: BP 127/68
--- NOTE | 2024-12-31 15:07 | CM ---
Home today, daughter to transport, no needs.
Plan; Home today.
== END 2024-12-31 15:28 | disposition home or self-care (01) | DRG 57 ==
LOC: 4 WEST ACU 12:45
PROVIDERS: Internal Medicine; ADMITTING PHYSICIAN Internal Medicine; ATTENDING PHYSICIAN Internal Medicine; CONSULT PHYSICIAN Psychiatry & Neurology Neurology; CONSULT PHYSICIAN Surgery Vascular Surgery; EMERGENCY PHYSICIAN Emergency Medicine; FAMILY PHYSICIAN Internal Medicine
DX: G81.94 Hemiplegia, unspecified affecting left nondominant side (principal); G45.9 Transient cerebral ischemic attack, unspecified; I65.22 Occlusion and stenosis of left carotid artery; Z87.891 Personal history of nicotine dependence; Z60.2 Problems related to living alone; E87.5 Hyperkalemia; I12.9 Hypertensive chronic kidney disease with stage 1 through stage 4 chronic kidney disease, or unspecified chronic kidney disease; N18.32 Chronic kidney disease, stage 3b; F41.9 Anxiety disorder, unspecified; J38.3 Other diseases of vocal cords; Z85.828 Personal history of other malignant neoplasm of skin; Z92.3 Personal history of irradiation; Z79.82 Long term (current) use of aspirin; Z79.899 Other long term (current) drug therapy
CPT/HCPCS: 70450; 70553; 74022; 80048; 80053; 80061; 83036; 85025; 85027; 85576; 86618; 92610; 93005; 93880; 97116; 97162; 97166; 99285; A9575

== ENCOUNTER 2025-01-03 01:06 | Inpatient (IN) | payer MEDICARE, OTHER, SELFPAY ==
[2025-01-02 18:52] VITALS: BP 152/83
[2025-01-02 18:57] VITALS: BP 152/83; BMI 20.4
[2025-01-02 19:00] VITALS: BP 159/77
--- NOTE | 2025-01-02 19:14 | ED.GENMED ---
History of Present Illness
<Olimpia Newton PA-C - Last Filed: 01/03/25 01:08>
General
Chief Complaint: Abdominal Symptoms
Source: patient and records
Exam Limitations: none
Time Seen by Provider: 01/02/25 19:02
History of Present Illness
History of Present Illness:
89yoF with history of coronary artery disease, hypertension, hyperlipidemia, CKD presenting via EMS for evaluation of vomiting. Patient had a peanut butter and jelly sandwich for lunch this afternoon. About 1 hour later, she started to experience
nausea and vomiting. She has vomited several times since then and is also experiencing diarrhea. She reports generalized abdominal discomfort and cramping which worsens prior to vomiting. She received 4 mg IV Zofran prehospital which did not
help. She denies any fevers, hematemesis, coffee ground emesis, hematochezia, chest pain, shortness of breath, headache, dizziness. She was hospitalized from 12/28-01/01 after presenting for a facial droop. She was found to have carotid stenosis
and started on Plavix.
Past History
<Olimpia Newton PA-C - Last Filed: 01/03/25 01:08>
Past History
ED Past Medical History: CAD, GERD, HTN, Hypercholesterolemia and OK
ED Past Surgical History: Cardiac (Catheterization/RCA stent) and Gynecological
Social History
Tobacco: Former smoker
Alcohol: None
Living: with family
Employment: Retired
Family History
Family History: Negative Diabetes, Hypertension or CAD
Phy Exam
<Olimpia Newton PA-C - Last Filed: 01/03/25 01:08>
Physical Exam
Physical Exam:
Patient appears uncomfortable, nontoxic
General Physical Exam
General Presentation: no apparent distress
General Skin: warm and dry
General Habitus: normal and elderly
General Mental: alert
ENT Exam
ENT Exam: normocephalic
Cardiovascular Exam
Cardiovascular Exam: regular rate/rhythm
Pulmonary Exam
Pulmonary Exam: lungs clear, no respiratory distress, no rales, no crackles, no rhonchi and no wheezing
Gastrointestinal Exam
Gastrointestinal Exam: soft, non distended and other (Generalized abdominal tenderness. Abdomen soft, nondistended. No guarding or rebound.)
Neurological Exam
Neurological Exam: alert
Jarrod Coma Scale
Eye Opening: Spontaneous
Verbal Response: Oriented
Motor Response: Obeys Commands
GCS Total Score: 15
Skin Exam
Skin Exam: normal color and warm/dry
Psychiatric Exam
Psychiatric Exam: normal mood/affect
Course
<Olimpia Newton PA-C - Last Filed: 01/03/25 01:08>
Orders/Labs/Results
Orders:
Orders
01/02/25 19:04
CMP [Comprehensive Metabolic Panel] Urgent
Complete Blood Count/With Diff Urgent
01/02/25 19:11
Cardiac Monitoring- Treatment ONCE
0.9% Sodium Chloride 500 ml [Nss] 500 ml IV BOLUS
Iohexol [Omnipaque] See Protocol PO NOW STA
Ondansetron Injectable [Zofran] 4 mg IV NOW STA
01/02/25 19:12
Electrocardiogram (*1) Urgent
Reason for Study: Abdominal Pain
EKG- Treatment ONCE
01/02/25 19:16
CDIFF [C difficile Antigen & Toxins] Urgent
KISHOR Source: Feces/Stool
Specimen Description:
Stool Culture Urgent
KISHOR Source: Feces/Stool
Specimen Description:
01/02/25 19:17
Lipase Urgent
Magnesium Urgent
Troponin I Urgent
01/02/25 19:36
CT Abd/pel (oral only)-DH Only Urgent
Comment:
Reason For Exam: generalized abd pain, vomiting
01/02/25 19:37
0.9% Sodium Chloride 500 ml [Nss] 500 ml IV BOLUS
01/02/25 20:15
Prochlorperazine [Compazine] 10 mg IV NOW STA
01/02/25 23:02
HYDROmorphone [Dilaudid] 0.5 mg IV NOW STA
01/03/25 00:42
Admit/Transfer Patient As Directed
Co-Sign Provider:
Level of Care: Inpatient admission
Assign to:: Medical/Surgical
Physician / Group: Eric
Diagnosis: Colitis, BARBIE
Reason for Hospitalization: Colitis, BARBIE
Expected length of stay greater than two midnights?: Yes
ELOS- Estimated Length of Stay in days: 3
I certify the patient meets the requirements for IP care: Yes
PRN Pain Medication Management As Directed
May give lesser potent ordered pain med per pt: Yes
preference::
Protocol:: Medication orders for pain may be administered in a
manner that supports deferring to patient preference
when the pt is:
- Requesting an ordered lesser potent pain medication.
Least to most potent pain medications are defined
as: acetaminophen < NSAID < tramadol < opioids
(morphine, oxycodone, hydromorphone).
- Requesting a lesser dose of the same medication IF
ORDERED.
- Requesting a less intrusive route of administration
if both routes are prescribed by the provider (PO <
IV).
01/03/25 00:43
Code Status As Directed
Resuscitation Status: Full Code
Abnormal Lab Results
01/02/25
19:04
WBC 12.4 H 10^3/uL
(4.8-10.8)
RBC 3.63 L 10^6/uL
(4.20-5.40)
Hgb 10.9 L g/dL
(12.0-16.0)
Hct 32.0 L %
(37.0-47.0)
Abs Immat Gran (auto) 0.1 H 10^3/uL
(0-0.05)
Absolute Neuts (auto) 10.8 H 10^3/uL
(1.4-6.5)
Absolute Lymphs (auto) 0.7 L 10^3/uL
(1.2-3.4)
Absolute Monos (auto) 0.9 H 10^3/uL
(0.1-0.6)
Neutrophils % 87.1 H %
(42.2-75.2)
Lymphocytes % 5.2 L %
(20.5-51.1)
Carbon Dioxide 21 L mmol/L
(22-30)
BUN 48 H mg/dl
(7-17)
Creatinine 2.7 H mg/dL
(0.6-1.0)
Glucose 198 H mg/dl
(70-99)
01/02/25 19:04
01/02/25 19:04
Vital Signs
Initial and Last Documented VS:
Initial Vital Signs
Pulse Resp BP
81 30 152/83
01/02/25 18:52 01/02/25 18:52 01/02/25 18:52
Last Documented Vital Signs
Temp Pulse Resp BP Pulse Ox
98.1 F 86 21 161/74 100
01/02/25 18:57 01/02/25 20:30 01/02/25 20:30 01/02/25 20:00 01/02/25 19:16
Gagelt;Lee Anderson, DO - Last Filed: 01/02/25 22:58>
Orders/Labs/Results
Orders:
Orders
01/02/25 19:04
CMP [Comprehensive Metabolic Panel] Urgent
Complete Blood Count/With Diff Urgent
01/02/25 19:11
Cardiac Monitoring- Treatment ONCE
0.9% Sodium Chloride 500 ml [Nss] 500 ml IV BOLUS
Iohexol [Omnipaque] See Protocol PO NOW STA
Ondansetron Injectable [Zofran] 4 mg IV NOW STA
01/02/25 19:12
Electrocardiogram (*1) Urgent
Reason for Study: Abdominal Pain
EKG- Treatment ONCE
01/02/25 19:16
CDIFF [C difficile Antigen & Toxins] Urgent
KISHOR Source: Feces/Stool
Specimen Description:
Stool Culture Urgent
KISHOR Source: Feces/Stool
Specimen Description:
01/02/25 19:17
Lipase Urgent
Magnesium Urgent
Troponin I Urgent
01/02/25 19:36
CT Abd/pel (oral only)-[facility] Only Urgent
Comment:
Reason For Exam: generalized abd pain, vomiting
01/02/25 19:37
0.9% Sodium Chloride 500 ml [Nss] 500 ml IV BOLUS
01/02/25 20:15
Prochlorperazine [Compazine] 10 mg IV NOW STA
01/02/25 23:02
HYDROmorphone [Dilaudid] 0.5 mg IV NOW STA
01/03/25 00:42
Admit/Transfer Patient As Directed
Co-Sign Provider:
Level of Care: Inpatient admission
Assign to:: Medical/Surgical
Physician / Group: Eric
Diagnosis: Colitis, BARBIE
Reason for Hospitalization: Colitis, BARBIE
Expected length of stay greater than two midnights?: Yes
ELOS- Estimated Length of Stay in days: 3
I certify the patient meets the requirements for IP care: Yes
PRN Pain Medication Management As Directed
May give lesser potent ordered pain med per pt: Yes
preference::
Protocol:: Medication orders for pain may be administered in a
manner that supports deferring to patient preference
when the pt is:
- Requesting an ordered lesser potent pain medication.
Least to most potent pain medications are defined
as: acetaminophen < NSAID < tramadol < opioids
(morphine, oxycodone, hydromorphone).
- Requesting a lesser dose of the same medication IF
ORDERED.
- Requesting a less intrusive route of administration
if both routes are prescribed by the provider (PO <
IV).
01/03/25 00:43
Code Status As Directed
Resuscitation Status: Full Code
Abnormal Lab Results
01/02/25
19:04
WBC 12.4 H 10^3/uL
(4.8-10.8)
RBC 3.63 L 10^6/uL
(4.20-5.40)
Hgb 10.9 L g/dL
(12.0-16.0)
Hct 32.0 L %
(37.0-47.0)
Abs Immat Gran (auto) 0.1 H 10^3/uL
(0-0.05)
Absolute Neuts (auto) 10.8 H 10^3/uL
(1.4-6.5)
Absolute Lymphs (auto) 0.7 L 10^3/uL
(1.2-3.4)
Absolute Monos (auto) 0.9 H 10^3/uL
(0.1-0.6)
Neutrophils % 87.1 H %
(42.2-75.2)
Lymphocytes % 5.2 L %
(20.5-51.1)
Carbon Dioxide 21 L mmol/L
(22-30)
BUN 48 H mg/dl
(7-17)
Creatinine 2.7 H mg/dL
(0.6-1.0)
Glucose 198 H mg/dl
(70-99)
01/02/25 19:04
01/02/25 19:04
Vital Signs
Initial and Last Documented VS:
Initial Vital Signs
Pulse Resp BP
81 30 152/83
01/02/25 18:52 01/02/25 18:52 01/02/25 18:52
Last Documented Vital Signs
Temp Pulse Resp BP Pulse Ox
98.1 F 86 21 161/74 100
01/02/25 18:57 01/02/25 20:30 01/02/25 20:30 01/02/25 20:00 01/02/25 19:16
<Olimpia Newton PA-C - Last Filed: 01/03/25 01:08>
MDM/Problems Addressed
Differential Diagnosis Includes:
89yoF here with nausea and vomiting that began after eating lunch today. Also having diarrhea and abdominal pain. Just discharged yesterday after hospitalization for TIA. No signs of peritonitis on abdominal exam. Differential diagnosis includes
but is not limited to: Gastroenteritis, colitis, diverticulitis, SBO, dehydration
Initial ED plan: Check abdominal labs, troponin/EKG, and CT abdomen. IV Zofran and fluid bolus for symptoms.
<Olimpia Newton PA-C - Last Filed: 01/03/25 01:08>
*Pulse Oximetry
SaO2: 100
Oxygen Mode of Delivery: Room air
Patient hypoxic: no
*EKG
Interpreted by ED Provider?: Yes
EKG Intrepretation Date: 01/02/25
Heart Rate: 86
Rate: normal
Rhythm: sinus
[place]: normal axis
Interval: normal interval
QRS Pattern: normal QRS
Ischemia: non-specific ST changes
*Critical Care Note
Total Time (30-74mins, 75-104mins- exclusive of procedures): Not Applicable
<Olimpia Newton PA-C - Last Filed: 01/03/25 01:08>
Update Note
Update Note:
White count 12.4. Acute kidney injury present. Creatinine 2.7, up from 1.[address] shows a nonspecific proctocolitis. Patient had an episode of bright red blood per rectum during ED stay. Patient with persistent vomiting despite
multiple rounds of antiemetics. Will admit for further management.
ED Attending Note
<Olimpia Newton PA-C - Last Filed: 01/03/25 01:08>
-
Portions of this chart may have been created with voice recognition software.� Occasional wrong word or��sound alike� substitutions may have occurred due to the inherent limitations of voice recognition software.
<Lee Anderson DO - Last Filed: 01/02/25 22:58>
ED Attending Note
Patient seen and examined by attending physician: Yes
I performed the substantive portion of visit, reviewed & personally made and approve the management plan that is documented in note by myself or DINORA.: Yes
ED Attending Note:
Seen with PA examined independently agree with assessment and plan acute kidney injury elderly female
Discharge Plan
Departure
Patient Disposition: Admit
Date of Disposition: 01/02/25
Time of Disposition: 23:35
Presentation/result/management discussed w/ accepting MD/DO: Hospitalist
Discharge Problem:
Nausea, vomiting, and diarrhea, Acute kidney injury, Proctocolitis
Interventions
Interventions:
*Risk Screen - Suicide Last Done: 01/02/25 18:57
*General Assessment Last Done: 01/02/25 18:57
*Neglect/Abuse Screening Last Done: 01/02/25 18:57
*ED- Fall Risk Assessment Last Done: 01/02/25 18:57
*ED COVID-19 Vaccine History Last Done: 01/02/25 18:57
*ED Influenza Vaccine History Last Done: 01/02/25 18:57
AZ-Orvitu-Uxzzdprldu Assessment Last Done: 01/02/25 19:45
[2025-01-02 19:18] LABS: Hematocrit 32.0 % (37.0-47.0); Hemoglobin 10.9 g/dL (12.0-16.0); Mean Corp Hgb Conc. 34.1 g/dL (33.0-37.0); Mean Corpuscular Volume 88.2 fL (81.0-99.0); Nucleated Red Blood Cells % 0 %; Platelet Count 275 10^3/uL (130-400); Red Cell Dist. Width 12.5 % (11.5-14.5)
[2025-01-02] MEDS: OMNIPAQUE 50 ML PO (19:21)
[2025-01-02] MEDS: ZOFRAN 4 MG IV (19:21)
[2025-01-02] MEDS: NSS 500 IV ×2 (19:22→20:11)
[2025-01-02 19:33] LABS: ALT (SGPT) 14 U/L (0-35); AST (SGOT) 33 U/L (14-36); Albumin 4.4 g/dl (3.5-5.0); Alkaline Phosphatase 89 U/L (38-126); Blood Urea Nitrogen 48 mg/dl (7-17); Calcium 9.3 mg/dl (8.4-10.2); Carbon Dioxide 21 mmol/L (22-30); Chloride 101 mmol/L (98-107); Estimated Creatinine Clearance 11 ml/min; Glucose 198 mg/dl (70-99); Potassium 3.7 mmol/L (3.5-5.1); Sodium 136 mmol/L (135-145); Total Protein 7.2 g/dl (6.3-8.2); eGFR 16.45
[2025-01-02 19:54] LABS: Lipase 222 U/L (23-300); Magnesium 2.0 mg/dl (1.6-2.3)
[2025-01-02 20:00] VITALS: BP 161/74
[2025-01-02 20:00] LABS: Troponin I < 0.012 ng/ml
[2025-01-02] MEDS: COMPAZINE 10 MG IV (20:19)
[2025-01-02 21:00] VITALS: BP 166/62
[2025-01-02 22:09] VITALS: BP 170/81
[2025-01-03] VITALS (12 sets, daily range): BP systolic 93–172; BP diastolic 48–84
--- NOTE | 2025-01-03 00:48 | HPS.HSE ---
Family Physician
-
Family Physician: Marco Martinez
Chief Complaint
-
N/V/D
History of Present Illness
Patient is an 89y F with PMH significant for hypertension, ASCVD and recent admission for suspected TIA who presents to ED complaining of N/V/D. Patient was discharged from the hospital on 12/31 after stay for L facial numbness / droop. Treated
for suspected TIA. Noted to have LEFT carotid stenosis and work-up otherwise unremarkable. Discharged on DAPT. Patient states that she felt well during her hospital stay and at discharge.
Today around noon she ate a peanut butter sandwich. About 1 1/2 hours later she developed crampy abdominal pain with N/V/D. After multiple episodes of emesis and loose stools at home, patient presented to the ED for further evaluation.
She has had continued N/V/D here in the ED. Her last BM was noted to contain streaks of bright, red blood - this was not evident at home.
No fevers / chills. No other current complaints. Recent L facial complaints remain resolved.
Medical History
Past Medical History
Past Medical History: Reports CAD (with RCA stent ), GERD, HTN and Hypercholesterolemia
Past Surgical History: Reports Cardiac (Catheterization/RCA stent) and Gynocological
Social History
Tobacco: Former Smoker
Alcohol: None
Family History
Family History: Not pertinent
Allergies / Home Medications
Allergies reflects when Allergies were last updated in [facility].
Home Medications with original date entered in [facility]
Allergy/Medication List:
Allergies
Allergy/AdvReac Type Severity Reaction Status Date / Time
SEASONAL ALLERGIES Allergy Mild SINUS Uncoded 12/28/24 09:47
HEADACHES,
SNEEZING,
CONGESTION
Home Medications
aspirin 81 mg tablet,delayed release 81 mg PO DAILY 12/28/24
atorvastatin 40 mg tablet (Lipitor) 40 mg PO HS 12/28/24
diltiazem HCl 120 mg tablet,extended release 24 hr 120 mg PO BID 12/28/24
diphenhydramine 25 mg-acetaminophen 500 mg tablet (Acetaminophen PM) 1 tab PO HS 12/28/24
sertraline 50 mg tablet 50 mg PO DAILY 12/28/24
lisinopril 20 mg-hydrochlorothiazide 12.5 mg tablet 1 tab PO DAILY #1 tab 12/30/24
clopidogrel 75 mg tablet (Plavix) 75 mg PO DAILY #30 tabs 12/31/24
Review of Systems
-
History Source: Patient
A 12 point ROS was completed and negative except as noted: Yes
Constitutional: Reports Fatigue; Denies Fever or Chills
Respiratory: Denies Cough or Trouble Breathing
Cardiac: Denies Chest Pain or Palpitations
Abdomen/GI: Reports Abdominal Pain, Nausea, Vomiting, Diarrhea and Bloody Stools; Denies Black Stools or Anorexia
: Denies Dysuria or Flank Pain
Musculoskeletal: Denies Joint Pain or Edema
Neurological: Denies Dizzy or Headache
Physical Exam
Vital Signs
Vital Signs
Temp Pulse Resp BP Pulse Ox
98.1 F 86 21 161/74 100
01/02/25 18:57 01/02/25 20:30 01/02/25 20:30 01/02/25 20:00 01/02/25 19:16
Physical Exam
General: Other (89y F in no acute distress.)
HEENT: Other (Dry MM. Neck supple.)
Respiratory: Clear; No Wheezes, Rales or Rhonchi
Cardiac: S1/S2, Regular Rhythm and Murmur (II/ LISA)
GI: Soft and Other (Pos LLQ tenderness without rebound / guarding. Pos BS.)
Musculoskeletal: No Clubbing, No Cyanosis and No Edema
Neuro: AO x 3
Laboratory Results
-
01/02/25 19:04
01/02/25 19:04
Laboratory Results
Total Bilirubin 0.5 mg/dl (0.2-1.3) 01/02/25 19:04
AST 33 U/L (14-36) 01/02/25 19:04
ALT 14 U/L (0-35) 01/02/25 19:04
Alkaline Phosphatase 89 U/L (38-126) 01/02/25 19:04
Troponin I < 0.012 ng/ml 01/02/25 19:17
Lipase 222 U/L (23-300) 01/02/25 19:17
Impression/Plan
-
A/P: Patient is an 89y F with PMH significant for hypertension, ASCVD and recent TIA who presents to ED complaining of N/V/D since this afternoon.
Sigmoid Colitis / Proctocolitis
- Admit for further evaluation and treatment.
- Some BRB noted in the ED after multiple loose BMs this afternoon.
- Cover with empiric Zosyn for now.
- Check lactate.
- Check stool studies.
- IVF support / supportive care.
- Follow for clinical improvement.
- Not aware of any recalls / warnings for [employer] peanut butter - though there is very little active surveillance for such these days.
BARBIE on CKD III
- SCr = 2.7 compared to recent baseline of around 1.1.
- Hold lisinopril / HCTZ.
- IVF support and follow for improvement in renal function.
ASCVD
Recent TIA
- Continue ASA uninterrupted. Will hold Plavix acutely and follow stools for additional BRB.
- Follow H&H for changes.
- Continue BP control, statin, etc.
Benign Hypertension
- Continue Cardizem. Holding lisinopril / HCTZ acutely as noted above.
- Hydralazine as needed for very high BP.
- Adjust meds as needed. Resume BAO once renal function normalized.
Anxiety / Depression
- Continue sertraline.
DVT Prophylaxis: SCDs
Code Status: Full
[2025-01-03] MEDS: DILAUDID 0.5 MG IV ×2 (01:35→16:56)
[2025-01-03] MEDS: ZOSYN 50 IV ×3 (03:24→18:44)
[2025-01-03] MEDS: LR 1000 IV ×3 (03:52→21:17)
[2025-01-03 06:31] LABS: Hematocrit 28.9 % (37.0-47.0); Hemoglobin 9.3 g/dL (12.0-16.0); Mean Corp Hgb Conc. 32.2 g/dL (33.0-37.0); Mean Corpuscular Volume 93.5 fL (81.0-99.0); Platelet Count 215 10^3/uL (130-400); Red Cell Dist. Width 12.7 % (11.5-14.5)
[2025-01-03 06:45] LABS: Blood Urea Nitrogen 43 mg/dl (7-17); Calcium 8.4 mg/dl (8.4-10.2); Carbon Dioxide 24 mmol/L (22-30); Chloride 105 mmol/L (98-107); Estimated Creatinine Clearance 13 ml/min; Glucose 124 mg/dl (70-99); Potassium 4.4 mmol/L (3.5-5.1); Sodium 137 mmol/L (135-145); eGFR 19.94
[2025-01-03] MEDS: CARDIZEM CD 120 MG PO ×2 (09:24→19:38)
[2025-01-03] MEDS: ZOLOFT 50 MG PO (09:24)
[2025-01-03] MEDS: ASPIR LOW (ENTERIC COATED) 81 MG PO (09:24)
--- NOTE | 2025-01-03 10:38 | EDCM ---
CM reviewed chart and met with pt bedside in ED Pt lives alone in split level home, no LEANDER. Has railings on stairs.
Independent in ADLs, personal care and ambulation at baseline. No assistive devices, no DME.
Confirms prescription coverage.
No hx VN or SNF
PCP: Marco Martinez
Pharmacy: [facility]
Anticipate discharge home, CM will continue to follow for any discharge planning needs.
[2025-01-03] MEDS: COMPAZINE 5 MG IV ×2 (11:16→16:59)
--- NOTE | 2025-01-03 13:43 | CON.GI ---
Consultation
-
Date/Time Consultation Performed: 01/03/2025
Performing Provider: Jaya Naqvi MD
Reason for Consultation: N/V/D
Medical History
Chief Complaint / HPI
Chief Complaint: N/V/D
History of Present Illness:
The patient is an 89-year-old female with past medical history as noted who presents with acute onset nausea vomiting and diarrhea. Was recently hospitalized for facial droop thought to be TIA, workup negative for stroke. She was doing well up
until yesterday when after eating put her in chili with cheese a cracker sandwich she developed acute onset of crampy abdominal pain with vomiting and profuse diarrhea. She did have some bloody diarrhea, though no blood in her emesis. Today she is
feeling a little better, though still having some emesis mostly of bile, no further diarrhea today. She denies any lightheadedness or dizziness. She denies any sick contacts, recent antibiotics. She never had symptoms like this before and usually
has no GI complaints. Her last colonoscopy was in 2008 and unremarkable by her report.
Past Medical History
Past Medical History: Other (Coronary artery disease, recent TIA, GERD, hypertension, high cholesterol)
Social History
Tobacco: Former Smoker
Alcohol: None
Family History
Family History: Reviewed & Not Pertinent
Allergies / Home Medications
Allergy/AdvReac Type Severity Reaction Status Date / Time
SEASONAL ALLERGIES Allergy Mild SINUS Uncoded 12/28/24 09:47
HEADACHES,
SNEEZING,
CONGESTION
�Medication �Instructions �Recorded
aspirin 81 mg tablet,delayed 81 mg PO DAILY 12/28/24
release
atorvastatin 40 mg tablet (Lipitor) 40 mg PO HS 12/28/24
diltiazem HCl 120 mg 120 mg PO BID 12/28/24
tablet,extended release 24 hr
diphenhydramine 25 1 tab PO HS 12/28/24
mg-acetaminophen 500 mg tablet
(Acetaminophen PM)
sertraline 50 mg tablet 50 mg PO DAILY 12/28/24
lisinopril 20 1 tab PO DAILY #1 tab 12/30/24
mg-hydrochlorothiazide 12.5 mg
tablet
clopidogrel 75 mg tablet (Plavix) 75 mg PO DAILY #30 tabs 12/31/24
Review of Systems
-
All other systems: A 12 pt ROS was Negative except as stated above in HPI
Vital Signs
Temp Pulse Resp BP Pulse Ox
99.1 F 111 18 172/81 98
01/03/25 13:10 01/03/25 13:10 01/03/25 13:10 01/03/25 13:10 01/03/25 13:10
Physical Exam
Exam
General: NAD
HEENT: MMM, anicteric, no lymphadenopathy
Heart: Regular, no murmurs
Lungs: CTA bilaterally
Abdomen: normal bowel sounds, soft, no tenderness, no rebound or guarding, no masses, bruits or ascites
Extremeties: no edema
Skin: no rashes
Results
WBC 8.2 10^3/uL (4.8-10.8) 01/03/25 06:06
Hgb 9.3 g/dL (12.0-16.0) L 01/03/25 06:06
Hct 28.9 % (37.0-47.0) L 01/03/25 06:06
MCV 93.5 fL (81.0-99.0) 01/03/25 06:06
Plt Count 215 10^3/uL (130-400) D 01/03/25 06:06
Absolute Neuts (auto) 10.8 10^3/uL (1.4-6.5) H 01/02/25 19:04
Sodium 137 mmol/L (135-145) 01/03/25 06:06
Potassium 4.4 mmol/L (3.5-5.1) 01/03/25 06:06
Chloride 105 mmol/L (98-107) 01/03/25 06:06
Carbon Dioxide 24 mmol/L (22-30) 01/03/25 06:06
BUN 43 mg/dl (7-17) H 01/03/25 06:06
Creatinine 2.3 mg/dL (0.6-1.0) H 01/03/25 06:06
Calcium 8.4 mg/dl (8.4-10.2) 01/03/25 06:06
Total Bilirubin 0.5 mg/dl (0.2-1.3) 01/02/25 19:04
AST 33 U/L (14-36) 01/02/25 19:04
ALT 14 U/L (0-35) 01/02/25 19:04
Alkaline Phosphatase 89 U/L (38-126) 01/02/25 19:04
Lipase 222 U/L (23-300) 01/02/25 19:17
Diagnostic Image Results:
CT:
IMPRESSION:
Nonspecific proctocolitis.
Diverticulosis, though the degree of bowel wall thickening and extent of wall thickening is greater than the distribution of diverticula. Therefore, more likely proctocolitis as opposed to diverticulitis. No perforation or abscess.
No perforation or abscess. No evidence of bowel obstruction. No obstructive uropathy.
Prior GI Procedures:
EGD:
Colonoscopy:
Assessment / Plan
-
1. Nausea/vomiting/diarrhea: Acute, with probable colitis noted on CT scan, likely infectious, possibly viral versus foodborne toxin or bacterial. At this point she is nontoxic, diarrhea has improved, though still some emesis. Will continue
supportive care, IV fluids, antiemetics, clear liquids for now. If she has further diarrhea will check stool studies.
2. Anemia: With chronic normocytic anemia, some drop. Likely more dilution although some component of blood loss given bloody diarrhea previously. Will continue to trend for now and check iron studies, B12 and folate.
-
-
Thank you for consultation and allowing me to participate in the patient's care. Please call the business intelligence consultant GI physician during the after hours with any questions or concerns.
--- NOTE | 2025-01-03 19:43 | PTCARENOTE ---
pt was 84-86% on room air. placed on 3L=92%.
[2025-01-03] MEDS: LIPITOR 40 MG PO (21:15)
[2025-01-04] MEDS: ZOSYN 50 IV (02:12)
[2025-01-04 05:18] VITALS: BMI 18.9
[2025-01-04 06:30] LABS: Iron 44 ug/dl (37-170)
[2025-01-04 06:41] LABS: Total Iron Binding Capacity 203 ug/dl (265-497)
[2025-01-04 07:05] LABS: Ferritin 71.1 ng/ml (11.1-264.0)
[2025-01-04 07:37] LABS: Folate 10.3 ng/ml (2.76-20); Vitamin B12 332 pg/ml (239-931)
[2025-01-04 07:40] VITALS: BP 130/67
[2025-01-04] MEDS: LR 1000 IV ×2 (08:03→20:22)
[2025-01-04] MEDS: ASPIR LOW (ENTERIC COATED) 81 MG PO (08:03)
[2025-01-04] MEDS: CARDIZEM CD 120 MG PO ×2 (08:03→19:45)
[2025-01-04] MEDS: ZOLOFT 50 MG PO (08:04)
--- NOTE | 2025-01-04 08:12 | PTCARENOTE ---
IVF due to fall off this AM, MD made aware. Hgb dropped from 10.9 yesterday to 9.3 this AM, no BM since admission so no more blood spotted from rectum. MD made aware of lab values. No new orders at this time.
--- NOTE | 2025-01-04 09:05 | W.PN.GI.CBS2 ---
Today's Communication / Plan
-
Please see assessment and plan for details.
Assessment / Plan
-
1. Nausea/vomiting/diarrhea: Acute, with probable colitis noted on CT scan, likely infectious, possibly viral versus foodborne toxin or bacterial. She is feeling much better overall, tolerating clears this morning. At this point we will continue
supportive care, if still feeling better can advance diet for dinner. Leukocytosis has resolved, stool studies negative so far.
2. Anemia: With chronic normocytic anemia, some drop likely more dilutional although some component of blood loss given bloody diarrhea previously. Iron studies normal, no further gross bleeding. Will continue to trend for now.
Subjective
Subjective
Date of Service: January 04, 2025
Patient feeling much better overall, no nausea or vomiting overnight, no diarrhea, no bleeding, tolerated clears this morning without difficulty.
Objective
Data Reviewed
Laboratory Data:
Laboratory Results
01/03/25 06:06
01/03/25 06:06
Laboratory Results
Magnesium 2.0 mg/dl (1.6-2.3) 01/02/25 19:17
Total Bilirubin 0.5 mg/dl (0.2-1.3) 01/02/25 19:04
AST 33 U/L (14-36) 01/02/25 19:04
ALT 14 U/L (0-35) 01/02/25 19:04
Alkaline Phosphatase 89 U/L (38-126) 01/02/25 19:04
Lipase 222 U/L (23-300) 01/02/25 19:17
Vital Signs and I&O:
Vital Signs
Temp Pulse Resp BP Pulse Ox
98.0 F 89 12 130/67 94
01/04/25 07:40 01/04/25 08:03 01/04/25 07:40 01/04/25 08:03 01/04/25 07:40
I&O
01/03/25 01/04/25 01/05/25
06:59 06:59 05:59
Intake Total 1320 / 1320
Balance 1320 / 1320
Physical Exam
Physical Exam
General: NAD
Abdomen: normal bowel sounds, soft, no tenderness, no masses or bruits, no ascites
--- NOTE | 2025-01-04 10:18 | W.PN.HOSP.TC ---
Today's Communication/Plan
-
Advance diet to full liquid diet.
Follow creatinine in a.m.
Assessment / Plan
Assessment / Plan
A/P: Patient is an 89y F with PMH significant for hypertension, ASCVD and recent TIA who presents to ED complaining of N/V/D since this afternoon.
Sigmoid Colitis / Proctocolitis
- Suspected infectious
- Some BRB noted in the ED after multiple loose BMs on the day of admission .
- Stool bacterial cultures are pending. C. difficile negative. Lactate was normal
- Cover with empiric Zosyn for now.
-Continue with supportive care.
- Follow for clinical improvement.
- Not aware of any recalls / warnings for [employer] peanut butter - though there is very little active surveillance for such these days.
- Will advance diet to full liquid diet.
Drop in H&H-suspect dilutional. Continue to follow
BARBIE on CKD III
- SCr = 2.7 compared to recent baseline of around 1.1.
- Hold lisinopril / HCTZ.
- Creatinine improving to 2.2 today. Check in AM.
ASCVD
Recent TIA
- Continue ASA uninterrupted. Will hold Plavix acutely and follow stools for additional BRB. Resume Plavix when okay from GI standpoint
- Follow H&H for changes.
- Continue BP control, statin, etc.
Benign Hypertension
- Continue Cardizem. Holding lisinopril / HCTZ acutely as noted above.
- Hydralazine as needed for very high BP.
- Adjust meds as needed. Resume BAO once renal function normalized.
- Blood pressure under goal
Anxiety / Depression
- Continue sertraline.
DVT Prophylaxis: SCDs
Code Status: Full
Discussed with GI
Discussed with son at bedside
Anticipated Discharge: 24 - 48 hours
Subjective/Interval History
-
Date of Service: January 04, 2025
No further diarrhea. No abdominal pain.
Resolved nausea vomiting. Tolerating clear liquids.
Denies fever chills.
No new neurological symptoms on this admission.
Denies shortness of breath or chest pain.
Objective Data
-
Vital Signs:
Vital Signs
Temp Pulse Resp BP Pulse Ox
98.0 F 89 12 130/67 94
01/04/25 07:40 01/04/25 08:03 01/04/25 07:40 01/04/25 08:03 01/04/25 07:40
I&O
01/03/25 01/04/25 01/05/25
06:59 06:59 05:59
Intake Total 1320 / 1320
Balance 1320 / 1320
Physical Exam
-
General: Comfortable
Respiratory: Clear to Auscultation and Non Labored Respirations; Negative Accessory Resp Muscle Use
Cardiac: Regular Rhythm and S1/S2; Negative Tachycardic
GI: Soft, Nontender, Nondistended and Normal Bowel Sounds
Neuro: AO x 3
Data Reviewed
-
Labs: Labs Reviewed by me
[2025-01-04 15:30] VITALS: BP 124/58
[2025-01-04] MEDS: LIPITOR 40 MG PO (19:45)
[2025-01-04 22:52] VITALS: BP 127/52
[2025-01-05] MEDS: LR 1000 IV (04:01)
--- NOTE | 2025-01-05 05:51 | PTCARENOTE ---
pt was 84% on room air. placed on 2L=94%. while sleeping
[2025-01-05 07:40] VITALS: BP 149/67
[2025-01-05 07:49] LABS: Hematocrit 31.0 % (37.0-47.0); Hemoglobin 9.8 g/dL (12.0-16.0); Mean Corp Hgb Conc. 31.6 g/dL (33.0-37.0); Mean Corpuscular Volume 97.8 fL (81.0-99.0); Platelet Count 200 10^3/uL (130-400); Red Cell Dist. Width 12.4 % (11.5-14.5)
[2025-01-05 08:11] LABS: Blood Urea Nitrogen 22 mg/dl (7-17); Calcium 8.7 mg/dl (8.4-10.2); Carbon Dioxide 26 mmol/L (22-30); Chloride 102 mmol/L (98-107); Estimated Creatinine Clearance 26 ml/min; Glucose 81 mg/dl (70-99); Potassium 3.7 mmol/L (3.5-5.1); Sodium 136 mmol/L (135-145); eGFR 48.33
[2025-01-05] MEDS: ZOLOFT 50 MG PO (09:23)
[2025-01-05] MEDS: CARDIZEM CD 120 MG PO ×2 (09:23→21:36)
[2025-01-05] MEDS: ASPIR LOW (ENTERIC COATED) 81 MG PO (09:23)
--- NOTE | 2025-01-05 09:44 | W.PN.HOSP.TC ---
Today's Communication/Plan
-
CW Zosyn
CW Full liquid diet
Hold further IV fluids
Assessment / Plan
Assessment / Plan
A/P: Patient is an 89y F with PMH significant for hypertension, ASCVD and recent TIA who presents to ED complaining of N/V/D since this afternoon.
Sigmoid Colitis / Proctocolitis
- Suspected infectious
- Some BRB noted in the ED after multiple loose BMs on the day of admission .
- Stool bacterial cultures are pending. C. difficile negative. Lactate was normal
- Cover with empiric Zosyn for now.
-Continue with supportive care.
- Improved upper GI symptoms. No abdominal pain. Still some blood in the stools. H&H stable.
- Advance diet per GI
BARBIE on CKD III
- SCr = 2.7 compared to recent baseline of around 1.1.
- Hold lisinopril / HCTZ.
- Creatinine back to baseline today. Creatinine 1.1.
ASCVD
Recent TIA
- Continue ASA uninterrupted. Will hold Plavix acutely and follow stools for additional BRB. Resume Plavix when okay from GI standpoint
- Follow H&H for changes.
- Continue BP control, statin, etc.
Benign Hypertension
- Continue Cardizem. Holding lisinopril / HCTZ acutely as noted above.
- Hydralazine as needed for very high BP.
- Adjust meds as needed. Resume BAO today if needed for BP control.
- Blood pressure under goal
Anxiety / Depression
- Continue sertraline.
DVT Prophylaxis: SCDs
Code Status: Full
Discussed with GI
Discussed with son at bedside
Anticipated Discharge: 24 - 48 hours
Subjective/Interval History
-
Date of Service: January 05, 2025
No nausea or vomiting. Tolerating full liquid diets. No abdominal pain. She says she had 2 loose bowel movements that are dark in color.
Checked with RN-apparently there was some streaks of blood in the stools and the stools were dark but not as like before.
No fever or chills.
Denies any dizziness.
No chest pain or shortness of breath.
Objective Data
-
Labs:
Laboratory Results
01/05/25
07:10
WBC 5.4
Hgb 9.8 L
Hct 31.0 L
Plt Count 200
Sodium 136
Potassium 3.7
Chloride 102
Carbon Dioxide 26
BUN 22 H
Creatinine 1.1 H
Glucose 81
Calcium 8.7
Vital Signs:
Vital Signs
Temp Pulse Resp BP Pulse Ox
98.5 F 65 12 149/67 90
01/05/25 07:40 01/05/25 07:40 01/05/25 07:40 01/05/25 07:40 01/05/25 07:40
I&O
01/04/25 01/05/25 01/06/25
06:59 05:59 06:59
Intake Total 1320 / 1320 3060 / 3060
Balance 1320 / 1320 3060 / 3060
Physical Exam
-
General: No Apparent Distress
Respiratory: Clear to Auscultation and Non Labored Respirations; Negative Accessory Resp Muscle Use
Cardiac: Regular Rhythm and S1/S2; Negative Tachycardic
GI: Soft, Nontender, Nondistended and Normal Bowel Sounds
Neuro: AO x 3
Data Reviewed
-
Labs: Labs Reviewed by me
[2025-01-05] MEDS: ZOSYN 50 IV ×3 (09:59→21:30)
--- NOTE | 2025-01-05 10:01 | W.PN.GI.CBS2 ---
Today's Communication / Plan
-
Please see assessment and plan for details.
Assessment / Plan
-
1. Nausea/vomiting/diarrhea: Acute, with probable colitis noted on CT scan, likely infectious, possibly viral versus foodborne toxin or bacterial. She is feeling much better overall, tolerating full liquids today. At this point we will continue
supportive care. Will advance to low residue diet and if tolerates is okay to DC from a GI standpoint without antibiotics.
2. Anemia: With chronic normocytic anemia, some drop likely more dilutional although some component of blood loss given bloody diarrhea previously. Iron studies normal, no further gross bleeding, hemoglobin remained stable
Subjective
Subjective
Date of Service: January 05, 2025
Patient feeling much better overall, had 2 loose stools overall though small amount of dark blood, no abdominal pain, no nausea, vomiting, fever or chills, tolerated [place] without difficulty.
Objective
Data Reviewed
Laboratory Data:
Laboratory Results
01/05/25 07:10
01/05/25 07:10
Laboratory Results
Magnesium 2.0 mg/dl (1.6-2.3) 01/02/25 19:17
Total Bilirubin 0.5 mg/dl (0.2-1.3) 01/02/25 19:04
AST 33 U/L (14-36) 01/02/25 19:04
ALT 14 U/L (0-35) 01/02/25 19:04
Alkaline Phosphatase 89 U/L (38-126) 01/02/25 19:04
Lipase 222 U/L (23-300) 01/02/25 19:17
Vital Signs and I&O:
Vital Signs
Temp Pulse Resp BP Pulse Ox
98.5 F 65 12 149/67 90
01/05/25 07:40 01/05/25 07:40 01/05/25 07:40 01/05/25 07:40 01/05/25 07:40
I&O
01/04/25 01/05/25 01/06/25
06:59 05:59 06:59
Intake Total 1320 / 1320 3060 / 3060
Balance 1320 / 1320 3060 / 3060
Physical Exam
Physical Exam
General: NAD
Abdomen: normal bowel sounds, soft, no tenderness, no masses or bruits, no ascites
[2025-01-05 15:30] VITALS: BP 149/60
[2025-01-05] MEDS: LIPITOR 40 MG PO (21:36)
[2025-01-05] MEDS: BENADRYL 25 MG PO (21:50)
[2025-01-05] MEDS: TYLENOL 650 MG PO (21:50)
[2025-01-05 23:05] VITALS: BP 156/67
[2025-01-06] MEDS: ZOSYN 50 IV ×2 (04:01→11:11)
[2025-01-06] MEDS: FLUSH (NSS) 2 FLUSH IV (04:02)
[2025-01-06 05:43] VITALS: BMI 19.9
--- NOTE | 2025-01-06 05:59 | W.PN.GI.CBS2 ---
Today's Communication / Plan
-
Please see assessment and plan for details.
Assessment / Plan
-
1. Nausea/vomiting/diarrhea: Acute, with probable colitis noted on CT scan, likely infectious, possibly viral versus foodborne toxin or bacterial. Stool studies have been negative. She is feeling much better overall, tolerating low residue diet.
At this point she is okay to DC from a GI standpoint without antibiotics pending morning labs.
2. Anemia: With chronic normocytic anemia, some drop likely more dilutional although some component of blood loss given bloody diarrhea previously. Iron studies normal, no further gross bleeding, hemoglobin remained stable.
We will sign off now, please contact any further questions.
Subjective
Subjective
Date of Service: January 06, 2025
Patient feeling much better overall, tolerated diet without difficulty, had 1 bowel movement with some older looking blood, though no abdominal pain, fever or chills.
Objective
Data Reviewed
Laboratory Data:
Laboratory Results
Magnesium 2.0 mg/dl (1.6-2.3) 01/02/25 19:17
Total Bilirubin 0.5 mg/dl (0.2-1.3) 01/02/25 19:04
AST 33 U/L (14-36) 01/02/25 19:04
ALT 14 U/L (0-35) 01/02/25 19:04
Alkaline Phosphatase 89 U/L (38-126) 01/02/25 19:04
Lipase 222 U/L (23-300) 01/02/25 19:17
Vital Signs and I&O:
Vital Signs
Temp Pulse Resp BP Pulse Ox
98.1 F 65 20 156/67 94
01/05/25 23:05 01/05/25 23:05 01/05/25 23:05 01/05/25 23:05 01/06/25 00:02
I&O
01/04/25 01/05/25 01/06/25
06:59 05:59 06:59
Intake Total 1320 / 1320 3060 / 3060 700 / 700
Balance 1320 / 1320 3060 / 3060 700 / 700
Physical Exam
Physical Exam
General: NAD
Abdomen: normal bowel sounds, soft, no tenderness, no masses or bruits, no ascites
[2025-01-06 07:33] VITALS: BP 155/67
[2025-01-06] MEDS: CARDIZEM CD 120 MG PO (07:59)
[2025-01-06] MEDS: ASPIR LOW (ENTERIC COATED) 81 MG PO (07:59)
[2025-01-06] MEDS: ZOLOFT 50 MG PO (07:59)
[2025-01-06 10:08] LABS: Hematocrit 27.8 % (37.0-47.0); Hemoglobin 9.1 g/dL (12.0-16.0); Mean Corp Hgb Conc. 32.7 g/dL (33.0-37.0); Mean Corpuscular Volume 92.4 fL (81.0-99.0); Platelet Count 176 10^3/uL (130-400); Red Cell Dist. Width 12.4 % (11.5-14.5)
[2025-01-06 11:11] LABS: Blood Urea Nitrogen 16 mg/dl (7-17); Calcium 8.2 mg/dl (8.4-10.2); Carbon Dioxide 31 mmol/L (22-30); Chloride 99 mmol/L (98-107); Estimated Creatinine Clearance 25 ml/min; Glucose 141 mg/dl (70-99); Potassium 3.4 mmol/L (3.5-5.1); Sodium 136 mmol/L (135-145); eGFR 43.54
--- NOTE | 2025-01-06 12:13 | W.PN.HOSP.TC ---
Addendum entered and electronically signed by Javier Kern MD 01/06/25 15:55:
[id number]
Original Note:
Today's Communication/Plan
-
oral abx
restart plavix
f/u cbc, cbc outpatient in 1 week
LRD
Lisinopril on DC; hold ACEI/HCTZ combo for now
F/u PCP, GI outpt
Assessment / Plan
Assessment / Plan
A/P: Patient is an 89y F with PMH significant for hypertension, ASCVD and recent TIA who presents to ED complaining of N/V/D since this afternoon.
Sigmoid Colitis / Proctocolitis
- Suspected infectious
- Some BRB noted in the ED after multiple loose BMs on the day of admission .
- Stool bacterial cultures negative.. C. difficile negative. Lactate was normal
- Cover with empiric Zosyn for now.�Transition to Augmentin to complete total 10-day course of antibiotics
-Continue with supportive care.
- Improved upper GI symptoms. No abdominal pain. Still some blood in the stools. Much improved H&H stable.
- Continue low residue diet
BARBIE on CKD III, resolved
- SCr = 2.7 compared to recent baseline of around 1.1.
- Hold lisinopril / HCTZ.
- Creatinine back to baseline today
�Resume lisinopril on discharge, hold hydrochlorothiazide until repeat BMP in can restart lisinopril/hydrochlorothiazide outpatient
ASCVD
Recent TIA
- Continue ASA uninterrupted. Resuming Plavix; educated on come back to the hospital if worsening bleed
- Follow H&H for changes.
- Continue BP control, statin, etc.
Benign Hypertension
- Continue Cardizem. Holding lisinopril / HCTZ acutely as noted above.
- Hydralazine as needed for very high BP.
- Adjust meds as needed. Resume BAO today if needed for BP control.
- Blood pressure under goal
Anxiety / Depression
- Continue sertraline.
DVT Prophylaxis: SCDs
Code Status: Full
More than 30 minutes spent in discharge including
Final examination of the patient
Summarizing hospital stay
Instructions for continuing care to all relevant caregivers
Preparation of discharge records, prescriptions, and referral forms
Total time spent (in minutes): 36
Anticipated Discharge: Today
Subjective/Interval History
-
Date of Service: January 06, 2025
No acute events overnight, tolerating diet well
Objective Data
-
Labs:
Laboratory Results
01/06/25
09:55
WBC 4.3 L
Hgb 9.1 L
Hct 27.8 L
Plt Count 176
Sodium 136
Potassium 3.4 L
Chloride 99
Carbon Dioxide 31 H
BUN 16
Creatinine 1.2 H
Glucose 141 H
Calcium 8.2 L
Vital Signs:
Vital Signs
Temp Pulse Resp BP Pulse Ox
98.5 F 61 18 155/67 100
01/06/25 07:33 01/06/25 07:59 01/06/25 07:33 01/06/25 07:59 01/06/25 07:33
I&O
01/05/25 01/06/25 01/07/25
05:59 06:59 06:59
Intake Total 3060 / 3060 700 / 700
Balance 3060 / 3060 700 / 700
Review of Systems
-
History Source: Patient
All other systems: Not reviewed unless documented
Physical Exam
-
General: No Apparent Distress
Respiratory: Clear to Auscultation and Non Labored Respirations; Negative Accessory Resp Muscle Use
Cardiac: Regular Rhythm and S1/S2; Negative Tachycardic
GI: Soft, Nontender, Nondistended and Normal Bowel Sounds
Neuro: AO x 3
Data Reviewed
-
Labs: Labs Reviewed by me
--- NOTE | 2025-01-06 12:16 | W.DS.TRANS ---
DC Summary - [employer]
-
Discharge Instructions:
Discharge Diagnosis/Procedures Sigmoid Colitis / Proctocolitis
Diet Low Residue
Blood Work cbc and bmp in 1 week with pcp
Instructions:
Stand-Alone Forms:
Changes to Home Medications: Yes
Discharge Medications:
DC Medications w/original date entered in [facility]
aspirin 81 mg tablet,delayed release 81 mg PO DAILY Blood Clot Prevention/Tx 12/28/24
atorvastatin 40 mg tablet (Lipitor) 40 mg PO HS High Cholesterol 12/28/24
diltiazem HCl 120 mg tablet,extended release 24 hr 120 mg PO BID Heart Disease/Condition 12/28/24
diphenhydramine 25 mg-acetaminophen 500 mg tablet (Acetaminophen PM) 1 tab PO HS Sleep 12/28/24
sertraline 50 mg tablet 50 mg PO DAILY Mental Health/Anxiety 12/28/24
lisinopril 20 mg-hydrochlorothiazide 12.5 mg tablet 1 tab PO DAILY #1 tab 12/30/24
Held on 01/06/25. Instructions: Resume on 01/10/25. until cleared by pcp with bmp
clopidogrel 75 mg tablet (Plavix) 75 mg PO DAILY #30 tabs 12/31/24
amoxicillin 875 mg-potassium clavulanate 125 mg tablet 1 tab PO Q12H 9 days #18 tabs 01/06/25
lisinopril 20 mg tablet 20 mg PO DAILY #30 tabs 01/06/25
Home Medication Changes
amoxicillin 875 mg-potassium clavulanate 125 mg tablet 1 tab PO Q12H 9 days #18 tabs 01/06/25
lisinopril 20 mg tablet 20 mg PO DAILY #30 tabs 01/06/25
Pending Results: No
[2025-01-06] MEDS: FLUZONE HIGH-DOSE 2025-26 0.5 ML IM (13:14)
--- NOTE | 2025-01-06 13:17 | CM ---
F/U: Patient discharging and has no needs. IMM Completed. PLAN: Home No Needs.
[2025-01-06] MEDS: KCL 40 MEQ PO (15:15)
== END 2025-01-06 15:45 | disposition home or self-care (01) | DRG 392 ==
LOC: 2 NORTH 01:06
PROVIDERS: Internal Medicine; Physician Assistant; ADMITTING PHYSICIAN Hospitalist; ATTENDING PHYSICIAN Internal Medicine; CONSULT PHYSICIAN Internal Medicine Gastroenterology; EMERGENCY PHYSICIAN Emergency Medicine; FAMILY PHYSICIAN Internal Medicine
PROC: 3E02340 Introduction of Influenza Vaccine into Muscle, Percutaneous Approach (ICD-10-PCS; 2025-01-06)
DX: K52.9 Noninfective gastroenteritis and colitis, unspecified (principal); N17.9 Acute kidney failure, unspecified; Z87.891 Personal history of nicotine dependence; I25.10 Atherosclerotic heart disease of native coronary artery without angina pectoris; Z86.73 Personal history of transient ischemic attack (TIA), and cerebral infarction without residual deficits; N18.30 Chronic kidney disease, stage 3 unspecified; I12.9 Hypertensive chronic kidney disease with stage 1 through stage 4 chronic kidney disease, or unspecified chronic kidney disease; F32.A Depression, unspecified; F41.9 Anxiety disorder, unspecified; Z79.02 Long term (current) use of antithrombotics/antiplatelets; Z79.82 Long term (current) use of aspirin; Z23 Encounter for immunization
CPT/HCPCS: 74176; 80048; 80053; 82607; 82728; 82746; 83540; 83550; 83605; 83690; 83735; 84484; 85025; 85027; 87045; 87046; 87324; 87427; 87449; 90662; 93005; 96374; 96375; 99285; G0008

== ENCOUNTER → 2025-02-05 11:44 | Outpatient (REF) | payer MEDICARE, OTHER, SELFPAY | LOC: HWWDC 11:44 | PROVIDERS: ATTENDING PHYSICIAN Internal Medicine | DX: Z12.31 Encounter for screening mammogram for malignant neoplasm of breast (principal) | CPT/HCPCS: 77063; 77067 ==

== ENCOUNTER → 2025-02-07 11:00 | Outpatient (REF) | payer MEDICARE, OTHER, SELFPAY ==
[2025-02-07 11:55] LABS: Hematocrit 38.3 % (37.0-47.0); Hemoglobin 11.9 g/dL (12.0-16.0); Mean Corp Hgb Conc. 31.1 g/dL (33.0-37.0); Mean Corpuscular Volume 96.5 fL (81.0-99.0); Nucleated Red Blood Cells % 0 %; Platelet Count 240 10^3/uL (130-400); Red Cell Dist. Width 13.2 % (11.5-14.5)
[2025-02-07 14:26] LABS: ALT (SGPT) 18 U/L (0-35); AST (SGOT) 36 U/L (14-36); Albumin 4.8 g/dl (3.5-5.0); Alkaline Phosphatase 82 U/L (38-126); Blood Urea Nitrogen 23 mg/dl (7-17); Calcium 9.8 mg/dl (8.4-10.2); Carbon Dioxide 28 mmol/L (22-30); Chloride 103 mmol/L (98-107); Glucose 99 mg/dl (70-99); Potassium 5.1 mmol/L (3.5-5.1); Sodium 139 mmol/L (135-145); Total Protein 7.8 g/dl (6.3-8.2); eGFR 39.55
== END ==
LOC: REG 11:00
PROVIDERS: ATTENDING PHYSICIAN Internal Medicine
DX: G45.9 Transient cerebral ischemic attack, unspecified (principal); I10 Essential (primary) hypertension; N18.31 Chronic kidney disease, stage 3a; E78.00 Pure hypercholesterolemia, unspecified; K52.9 Noninfective gastroenteritis and colitis, unspecified; N17.9 Acute kidney failure, unspecified; J38.3 Other diseases of vocal cords; Z09 Encounter for follow-up examination after completed treatment for conditions other than malignant neoplasm
CPT/HCPCS: 36415; 80053; 85025